=== PATIENT | female | born 1930 | race Caucasian/White ===

== ENCOUNTER 2017-08-12 21:13 | Observation (INO) | payer MEDICARE ==
[2017-08-12 21:49] LABS: BASO % 0.2 % (0-6); EOS % 0.2 % (0-6); GRAN % 62.5 % (47-80); HEMATOCRIT 36.9 % (35.0-47.0); HEMOGLOBIN 11.7 gm/dl (11.6-16.0); LYMPH % 22.5 % (16-45); MEAN CELL VOLUME 92.9 fl (81-97); MEAN CORPUSCULAR HEMOGLOBIN 29.5 pg (27-33); MEAN CORPUSCULAR HGB CONC 31.7 g/dl (32-36); MEAN PLATELET VOLUME 9.6 fl (7.4-10.4); MONO % 14.6 % (0-9); PLATELET COUNT 241 K/uL (130-400); RED BLOOD COUNT 3.97 M/uL (3.80-5.40); RED CELL DISTRIBUTION WIDTH 14.4 % (11.5-14.5); WHITE BLOOD COUNT W/O DIFF 10.1 K/uL (4.2-12.2)
--- NOTE | 2017-08-12 21:56 | Emergency Department Record ---
History of Present Illness - General Chief complaint: Weakness Stated complaint: GENERALIZED WEAKNESS Time Seen by Provider: 08/12/17 21:21 Source: Patient, EMS Mode of Arrival: Ambulatory Limitations: No limitations - History of Present Illness Initial comments: pt has been increasingly weak the last few days until today she could not stand up. she has low back and r hip pain and cant raise her leg. she denies any injury. she lives independently. MD Complaint: Difficulty walking, Generalized weakness Onset/Timin -: Days(s) Location: Generalized, RLE Consistency: Getting worse - Mary Ann Coma Scale Eye Response: (4) Open spontaneously Motor Response: (6) Obeys commands Verbal Response: (5) Oriented [place] Total: 15 - Related Data Home Medications Medication Instructions Recorded Confirmed Last Taken Aspirin [Aspir-Low] 81 mg PO DAILY 08/12/17 08/12/17 Unknown Atorvastatin Calcium [Lipitor] 40 mg PO DAILY 08/12/17 08/12/17 Unknown Bupropion HCl [Bupropion Xl] 150 mg PO DAILY 08/12/17 08/12/17 Unknown Furosemide [Lasix] 20 mg PO QAM 08/12/17 08/12/17 Unknown Glipizide [Glipizide ER] 10 mg PO DAILY 08/12/17 08/12/17 Unknown Levothyroxine Sodium [Synthroid] 112 mcg PO DAILY 08/12/17 08/12/17 Unknown Losartan Potassium 50 mg PO DAILY 08/12/17 08/12/17 Unknown Metoprolol Succinate [Toprol Xl] 100 mg PO DAILY 08/12/17 08/12/17 Unknown Oxybutynin Chloride [Ditropan Xl] 10 mg PO DAILY 08/12/17 08/12/17 Unknown Prednisone 5 mg PO DAILY 08/12/17 08/12/17 Unknown Verapamil HCl 40 mg PO BID 08/12/17 08/12/17 Unknown Allergies Allergy/AdvReac Type Severity Reaction Status Date / Time No Known Drug Allergies Allergy Verified 08/12/17 21:16 Travel Screening - Travel/Exposure Within Last 30 Days Have you traveled within the last 30 days?: No Review of Systems Reviewed: No additional complaints except as noted below Constitutional: Reports: As per HPI, Weakness. Denies: Chills, Fever, Malaise, Night sweats, Weight change Eyes: Reports: As per HPI. Denies: Eye discharge, Eye pain, Photophobia, Vision change ENT: Reports: As per HPI. Denies: Congestion, Dental pain, Ear pain, Epistaxis , Hearing loss, Throat pain Respiratory: Reports: As per HPI. Denies: Cough, Dyspnea, Hemoptysis, Stridor, Wheezes Cardiovascular: Reports: As per HPI. Denies: Arrhythmia, Chest pain, Dyspnea on exertion, Edema, Murmurs, Orthopnea, Palpitations, Paroxysmal nocturnal dyspnea, Rheumatic Fever, Syncope Endocrine: Reports: As per HPI. Denies: Fatigue, Heat or cold intolerance, Polydipsia, Polyuria Gastrointestinal: Reports: As per HPI. Denies: Abdominal pain, Constipation, Diarrhea, Hematemesis, Hematochezia, Melena, Nausea, Vomiting Genitourinary: Reports: As per HPI. Denies: Abnormal menses, Discharge, Dyspareunia, Dysuria, Frequency, Hematuria, Incontinence, Retention, Urgency Musculoskeletal: Reports: As per HPI, Back pain. Denies: Arthralgia, Gout, Joint swelling, Myalgia, Neck pain Skin: Reports: As per HPI. Denies: Bruising, Change in color, Change in hair/ nails, Lesions, Pruritus, Rash Neurological: Reports: As per HPI. Denies: Abnormal gait, Confusion, Headache, Numbness, Paresthesias, Seizure, Tingling, Tremors, Vertigo, Weakness Psychiatric: Reports: As per HPI. Denies: Anxiety, Auditory hallucinations, Depression, Homicidal thoughts, Suicidal thoughts, Visual hallucinations Hematological/Lymphatic: Reports: As per HPI. Denies: Anemia, Blood Clots, Easy bleeding, Easy bruising, Swollen glands Past Medical History - SOCIAL HISTORY Smoking Status: Never smoker Alcohol Use: None Drug Use: None - RESPIRATORY Hx Respiratory Disorders: Yes - CARDIOVASCULAR Hx Cardio Disorders: Yes Hx Heart Attack: Yes ("Around 2006") Hx Hypertension: Yes - NEURO Hx Neuro Disorders: No - GI Hx GI Disorders: No - Hx Genitourinary Disorders: Yes Hx UTI: Yes (hx) - ENDOCRINE Hx Endocrine Disorders: Yes Hx Diabetes: Yes Hx Thyroid Disease: Yes - MUSCULOSKELETAL Hx Musculoskeletal Disorders: Yes Hx Arthritis: Yes - PSYCH Hx Psych Problems: Yes Hx Depression: Yes - HEMATOLOGY/ONCOLOGY Hx Hematology/Oncology Disorders: Yes Hx Cancer: Yes (Breast) Hx Chemotherapy: No Hx Radiation Therapy: Yes (2008) Family Medical History Any Significant Family History?: Yes Hx Diabetes: Father *Diabetes Comment: Aunt Hx Heart Disease: Father Physical Exam - General General Appearance: Alert, Oriented x3, Cooperative, Mild distress - Head Head exam: Normal inspection - Eye Eye exam: Normal appearance, PERRL, EOMI Pupils: Normal accommodation - ENT ENT exam: Normal exam, Mucous membranes moist, Normal external ear exam, Normal orophraynx Ear exam: Normal external inspection. negative: External canal tenderness Nasal Exam: Normal inspection. negative: Discharge, Sinus tenderness Mouth exam: Normal external inspection, Tongue normal Teeth exam: Normal inspection. negative: Dental caries Throat exam: Normal inspection. negative: Tonsillar erythema, Tonsillar exudate - Neck Neck exam: Normal inspection, Full ROM. negative: Tenderness - Respiratory Respiratory exam: Normal lung sounds bilaterally. negative: Respiratory distress - Cardiovascular Cardiovascular Exam: Regular rate, Normal rhythm, Normal heart sounds - GI/Abdominal GI/Abdominal exam: Soft, Normal bowel sounds. negative: Tenderness - Rectal Rectal exam: Deferred - exam: Deferred - Extremities Extremities exam: Normal inspection, Normal capillary refill, Tenderness. negative: Full ROM (unable to lift r leg) - Back Back exam: Reports: Muscle spasm, Paraspinal tenderness, Tenderness. Denies: Full ROM, Rash noted - Neurological Neurological exam: Alert, CN II-XII intact, Normal gait, Oriented X3 - Psychiatric Psychiatric exam: Normal affect, Normal mood - Skin Skin exam: Dry, Intact, Normal color, Warm Course Vital Signs 08/12/17 21:15 Temperature 99.5 F Pulse Rate 72 Respiratory 18 Rate Blood Pressure 180/83 Pulse Ox 98 Medical Decision Making - Lab Data Result diagrams: 08/12/17 21:40 08/12/17 21:40 Lab Results 08/12/17 Range/Units 21:40 WBC 10.1 (4.2-12.2) K/uL RBC 3.97 (3.80-5.40) M/uL Hgb 11.7 (11.6-16.0) gm/dl Hct 36.9 (35.0-47.0) % MCV 92.9 (81-97) fl MCH 29.5 (27-33) pg MCHC 31.7 L (32-36) g/dl RDW 14.4 (11.5-14.5) % Plt Count 241 (130-400) K/uL MPV 9.6 (7.4-10.4) fl Gran % 62.5 (47-80) % Lymphocytes % 22.5 (16-45) % Monocytes % 14.6 H (0-9) % Eosinophils % 0.2 (0-6) % Basophils % 0.2 (0-6) % Disposition Disposition: Admit Clinical Impression: Weakness UTI (urinary tract infection) Qualifiers: Urinary tract infection type: acute cystitis Hematuria presence: without hematuria Qualified Code(s): N30.00 - Acute cystitis without hematuria Hip pain, acute Qualifiers: Laterality: right Qualified Code(s): M25.551 - Pain in right hip Back pain Qualifiers: Back pain location: low back pain Chronicity: acute Back pain laterality: right Sciatica presence: with sciatica Sciatica laterality: sciatica of right side Qualified Code(s): M54.41 - Lumbago with sciatica, right side Disposition: Still a Patient at [facility] Decision to Admit: Admit from ER Decision to Admit Date: 08/13/17 Decision to Admit Time: 00:31 Forms: Patient Portal Access Quality - Quality Measures Quality Measures: N/A - Blood Pressure Screening Does Patient Have Any of the Following: No Blood Pressure Classification: Pre-Hypertensive BP Reading Systolic Measurement: 180 Diastolic Measurement: 83 Screening for High Blood Pressure: < Pre-Hypertensive BP, F/U Documented > [ G8950] Pre-Hypertensive Follow-up Interventions: Follow-up with rescreen every year.
[2017-08-12 22:03] LABS: BLOOD UREA NITROGEN 16 mg/dL (8-23)
[2017-08-12 22:04] LABS: CREATININE 0.8 mg/dL (0.5-0.9); EST GLOMERULAR FILTRATION RATE > 60 mL/min; TOTAL PROTEIN 7.2 g/dL (6.6-8.7)
[2017-08-12 22:06] LABS: GLUCOSE,RANDOM 171 mg/dL (74-109)
[2017-08-12 22:09] LABS: ALBUMIN 3.6 g/dL (4.0-5.0); ALKALINE PHOSPHATASE 48 U/L (35-104); ALT/SGPT 13 U/L (<33); AST/SGOT 20 U/L (10.0-35.0)
[2017-08-12 22:14] LABS: URINE APPEARANCE CLEAR; URINE BILIRUBIN NEGATIVE (NEGATIVE); URINE BLOOD SMALL (NEGATIVE); URINE COLOR YELLOW; URINE GLUCOSE (UA) NEGATIVE (NEGATIVE); URINE KETONE NEGATIVE (NEGATIVE); URINE LEUKOCYTE ESTERASE SMALL (NEGATIVE); URINE NITRITE NEGATIVE (NEGATIVE); URINE UROBILINOGEN 0.2 E.U./dL (0.20 - 1.00)
[2017-08-12 22:26] LABS: URINE BACTERIA 1+; URINE EPITHELIAL CELLS NONE SEEN (FEW); URINE RBC 0 - 2 (NONE SEEN)
[2017-08-12] MEDS ORDERED: ACETAMINOPHEN 500 MG TABLET PO ONE (22:46)
[2017-08-12 23:01] LABS: INFLUENZA A NEGATIVE (NEGATIVE); INFLUENZA B NEGATIVE (NEGATIVE)
[2017-08-12] MEDS ORDERED: CIPROFLOXACIN LACTATE/D5W 400 MG/200 ML BAG IVPB ONE (23:49)
[2017-08-13] MEDS ORDERED: CIPROFLOXACIN LACTATE/D5W 400 MG/200 ML BAG IVPB SCH (01:44)
[2017-08-13] MEDS: LEVOTHYROXINE SOD 112 MCG TAB PO SCH (06:58)
--- NOTE | 2017-08-13 07:24 | RADIOLOGY REPORT ---
EXAM: CHEST, TWO VIEWS HISTORY: GENERALIZED WEAKNESS. TECHNIQUE: Supine AP and lateral views of the chest were obtained. Comparison: None. FINDINGS: The heart projects mildly enlarged with a left ventricular configuration. Evaluation of the pulmonary vasculature is limited by supine technique. It does not, however, appear grossly dilated. No confluent air space opacity is seen nor is there costophrenic angle blunting or pneumothorax. The thoracic aorta is tortuous and atherosclerotic. There are degenerative changes scattered throughout the visualized spine. Mild anterior wedge deformity of several lower thoracic vertebral bodies identified. These are age indeterminate though probably chronic. There is superior end plate compression deformity of what is likely L1, age indeterminate. Surgical clips in the right breast versus right axilla. Surgical clips also noted in the upper abdomen. IMPRESSION: 1. CARDIOMEGALY WITH LEFT VENTRICULAR CONFIGURATION. 2. GROSSLY CLEAR LUNGS AND PLEURAL SPACES. TORTUOUS ATHEROSCLEROTIC THORACIC AORTA. 3. MILD WEDGE DEFORMITIES OF SEVERAL LOWER THORACIC VERTEBRAL BODIES, PROBABLY CHRONIC. 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 JOB NUMBER: [id number] [facility]
--- NOTE | 2017-08-13 07:27 | RADIOLOGY REPORT ---
EXAM: RIGHT HIP HISTORY: GENERALIZED WEAKNESS FOR THREE DAYS. RIGHT HIP PAIN WITHOUT STATED TRAUMA. TECHNIQUE: An AP view of the pelvis was obtained as well as AP and frog leg lateral views of the right hip. Comparison: Same day radiographic examination of the lumbar spine. FINDINGS: There is mild diffuse osteopenia. No acute fracture, dislocation, or destructive bone lesion is seen. There are osteoarthritic changes of each hip, mild to moderate on the right and moderate to advanced on the left. There are degenerative changes of the lower lumbar spine and sacroiliac joints. IMPRESSION: 1. OSTEOPENIA. NO ACUTE FRACTURE NOR DISLOCATION. 2. DEGENERATIVE CHANGES OF THE HIPS, LOWER LUMBAR SPINE AND SACROILIAC JOINTS, DESCRIBED ABOVE. JOB NUMBER: [id number] [facility]
--- NOTE | 2017-08-13 07:36 | RADIOLOGY REPORT ---
EXAM: LUMBAR SPINE, AP AND LATERAL VIEWS HISTORY: GENERALIZED WEAKNESS. RIGHT HIP PAIN. TECHNIQUE: AP and lateral views of the lumbar spine were obtained as well as a spot lateral view of the lumbosacral junction. Comparison: Same day two views of the chest. FINDINGS: There is diffuse osteopenia. There are five non-rib bearing lumbar type vertebra. Minor levoconvex curvature of the lumbar spine. There is mild superior end plate wedge compression deformity of L1 with the anterior height measuring 26 mm while the anterior height of L2 measures 37 mm. This is age indeterminate. Minor anterior wedging of several lower thoracic vertebral bodies likely chronic. The vertebral bodies are otherwise normal in height. There is Grade 1 anterolisthesis of L4 on L5 likely relating to degenerative disk and facet degenerative changes. The vertebral bodies are otherwise normal in alignment. No suspicious lytic or blastic bone lesion. Multilevel degenerative disk/ degenerative end plate changes most pronounced at the lumbosacral junction where they are moderate to advanced. Multilevel bilateral facet arthropathy most pronounced at the lower lumbar levels where the changes are moderate to advanced. There are degenerative changes of the hips, mild to moderate on the right and moderate to severe on the left. Surgical clips are noted within the right upper quadrant of the abdomen consistent with cholecystectomy. There is atherosclerotic calcification of the abdominal aorta without aneurysmal dilatation. IMPRESSION: MILD SUPERIOR END PLATE WEDGE COMPRESSION DEFORMITY OF L1 IS AGE INDETERMINATE. NO OTHER EVIDENCE OF LUMBAR FRACTURE. NO LYTIC OR BLASTIC BONE LESION. MULTILEVEL DEGENERATIVE CHANGES ASSOCIATED WITH MILD LEVOCONVEX CURVATURE CENTERED AT THE L3-L4 LEVEL WELL GRADE 1 ANTEROLISTHESIS OF L4 ON L5. JOB NUMBER: [id number] [facility]
--- NOTE | 2017-08-13 09:40 | Rehab Evaluation ---
Patient Information - Patient Information Diagnosis: weakness, unable to amb, UTI, R hip pain, back pain Ordered Treatment: OT Evaluate and Treat Status: Initial Evaluation Surgery: No Past Medical/Surgical Hx: PAST MEDICAL/SURGICAL HISTORY Past Surgical History Hysterectomy Heart Stents X 5 Cholecystectomy Appendectomy T&A PMH - Respiratory Hx Respiratory Disorders Yes Hx Asthma No Hx Bronchitis No Hx Chronic Obstructive No Pulmonary Disease (COPD) Hx Dyspnea Yes Hx Pneumonia Yes: childhood Hx Pulmonary Embolism Yes: 2017 Hx Sleep Apnea No Hx Tuberculosis No Hx of CPAP No PMH - Cardiovascular Hx Cardiovascular Disorders Yes Hx Abnormal EKG No Hx Cardiac Catheterization Yes Hx Chest Pain Yes Hx Congestive Heart Failure No Hx Deep Vein Thrombosis No Hx Edema No Hx Heart Attack Yes: "Around 2006" Hx Hypertension Yes Hx Hypotension No Hx Irregular Heartbeat Yes: with exertion Hx Palpitations No Hx Pacemaker/Defibrillator No Hx Vascular Disease No Hx Transient Ischemic Attacks No (TIA) PMH - Neuro Hx Neurological Disorders No Hx Brain Tumor Yes Hx Cerebrovascular Accident No Hx Dementia No Hx Dizziness Yes Hx Headaches No Hx Neuropathy No Hx Parkinson's Disease No Hx Seizures No Hx Speech Problem No Hx Syncope No Hx Transient Ischemic Attacks No (TIA) PMH - GI Hx Gastrointestinal Disorders No Hx Abdominal Pain No Hx Celiac Disease No Hx Crohn's Disease No Hx Diverticulitis No Hx Gastrointestinal Bleed No Hx Gastroesophageal Reflux No Hx Hepatitis/Jaundice No Hx Hiatal Hernia Yes Hx Irritable Bowel No Hx Liver Disease No Hx Nausea/Vomiting No Hx Obstructive Bowel No Hx Pancreatitis No Hx Rectal Bleeding No Hx Ulcer No Hx Weight Loss/Weight Gain No PMH - Hx Genitourinary Disorders Yes Hx Bladder Problem Yes Hx Dialysis No Hx Kidney Stones No Hx Renal Disease No Hx Urinary Tract Infection Yes: hx PMH - Endocrine Hx Endocrine Disorders Yes Hx Diabetes Yes Hx Thyroid Disease Yes PMH - Musculoskeletal Hx Musculoskeletal Disorders Yes Hx Arthritis Yes Hx Back Injury No Hx Fibromyalgia No Hx Gout No Hx Musculoskeletal Disease No Hx Osteoporosis No PMH - Psych Hx Psychiatric Problems Yes Hx Anxiety No Hx Behavior Problems No Hx Depression Yes Hx Emotional Abuse No Hx Sexual Abuse No Hx Suicide Attempt No Major Depressive Episode No Feelings of Hopelessness Yes PMH - Hematology/Oncology Hx Hematology/Oncology Yes Disorders Hx Anemia No Hx Blood Disorders No Hx Bruising No Hx Cancer Yes: Breast Hx Chemotherapy No Hx Radiation Therapy Yes: 2007 Hx Clotting Problems No Hx Sickle Cell Disease No Hx Unexplained Bleeding No Hx Blood Transfusion Reaction No Premorbid Status: Detail (Pt lives alone in a 1 story house with basement, she primarily stays on the main floor. She has 3 steps and 1 handrailing at the entrance. She has a tub/shower combination with 2 grab bars and she usually stands to shower. She has a standard height toilet, no grab bar. She is Ind with all ADLs, meal prep, laundry, home mgmt and yard work. She ambulates with a 4 wheeled walker.) Social History: Detail (Supportive daughter and son who live very close.) Precautions: [place], Fall - Time With Patient Total Time Spent With Patient (Min): 35 Treatment Procedures: Detail (OT eval low complexity) Subjective Information - Subjective Information Per Patient Objective Data - Pain Pain Present: Yes (Pt reports 0/10 pain at rest but significant pain in right leg with any movement) - Mental Status Patient Orientation: Oriented x3 - Visual Perception Appears within normal limits for therapeutic activities - ROM Within normal limits (Adama UE AROM grossly WNL) - Strength/Tone Within normal limits (Adama UE strength 4+/5) - Coordination Appears within normal limits for therapeutic activities - Bed Mobility Needs Assist (Mod assist for sit to supine, max assist x 2 to scoot up in bed.) - Transfers Dependent (Sit to stand from EOB to walker with mod assist x 1 and max assist x 1. Pt only able to stand for several seconds with mod assist x 2 due to right LE pain.) - Balance Balance Sitting: Good Balance Standing: Poor (Due to right LE pain) - Sensation Intact - Gait Detail (Pt unable to ambulate at this time) - ADL's/IADL's Detail (Pt able to doff hospital gown and don gown Indly while sitting at EOB. Nursing has been assisting with toileting using bed side commode.) Therapy Assessment - Therapy Assessment Detail (Pt presents with significantly impaired functional mobility due to right LE pain which is limiting her Ind with ADL activity.) Problem List - Problem List Occupational Therapy Problem List: Detail (1. Decreased Ind with self cares due to right LE pain. 2. Decreased functional mobility needed for safe and Ind self cares due to pain.) Goals - Goals Occupational Therapy Goals: 1. Pt will be Ind with dressing and showering activities. 2. Pt will be Ind with bed mobility and tranfers to allow improved Ind with self cares. Prognosis - Prognosis Good Plan - Plan Occupational Therapy Plan: OT 2-4 days per week to address self cares, functional mobility and pain mgmt to allow Ind return home.
[2017-08-13] MEDS: ACETAMINOPHEN 325 MG TAB PO PRN (09:43)
[2017-08-13] MEDS: BUPROPION HCL 150 MG TAB.SR.12H PO SCH (09:45)
[2017-08-13] MEDS: PREDNISONE 5 MG TAB PO SCH (09:46)
[2017-08-13] MEDS: LOSARTAN POTASSIUM 25 MG TABLET PO SCH (09:46)
[2017-08-13] MEDS: METOPROLOL SUCC 50 MG TABLET PO SCH (09:46)
[2017-08-13] MEDS: ASPIRIN 81 MG TABEC PO SCH (09:47)
[2017-08-13] MEDS: GLIPIZIDE XL 5 MG TABLET PO SCH (09:47)
[2017-08-13] MEDS: FUROSEMIDE 20 MG TABLET PO SCH (09:47)
[2017-08-13] MEDS ORDERED: OXYBUTYNIN CHLORIDE 10 MG PO SCH (10:00)
[2017-08-13] MEDS: LIDOCAINE 5% PATCH TOP SCH (11:20)
[2017-08-13] MEDS: CIPROFLOXACIN LACTATE/D5W 400 MG/200 ML BAG IVPB SCH (11:20)
--- NOTE | 2017-08-13 11:22 | History & Physical ---
History of Present Illness - Date of Service Date of Service for History & Physical: 08/13/17 - History of Present Illness Admitting Diagnosis: weakness, unable to ambulate, uti, back pain, r hip pain History of Present Illness: 87yo female presents with generalized weakness, inability to ambulate, right hip pain, and UTI. Patient has a past medical history of diabetes, multiple heart attacks, arthritis, and frequent UTI's. Patient states she has seen a urologist in the past for recurring UTI's, who discontinued her Ditropan. Patient states that she has chronic right hip pain that she controls with Tylenol at home. Patient lives at home alone, with family living nearby. She states yesterday she had significantly worsening right hip pain with no known injury. She had ambulated to the bathroom but was unable to get up off the toilet around 5pm. She states her arms were too weak to pull herself up and she was experiencing severe right hip pain. Patient had to call an ambulance at that point to be transported to the ED. While in the ED patient's workup was positive for a UTI, for which she was started on IV Cipro with urine culture pending. Radiography studies of her right hip indicated degenerative changes with no acute injury. Radiography of her lumbar spine was also completed which showed mild wedge compression of L1 which was likely chronic. Her chest x-ray was negative. An EKG completed by EMS did not reveal any new ST changes. CBC and CMP were unremarkable, influenza negative. Patient afebrile. 08/13/17: Patient laying in bed, complaining of continued right hip. States Tylenol has been improving the pain and has had success with Aleive in the past , but is scared to take it with her heart issues. Staff report that patient was unable to stand at the bedside this morning with assistance due to weakness and pain. Patient reports that the weakness and pain in her right hip have been progressively worsening over the past several months. Patient had a recent admission to [facility] in March for physical therapy for her back pain. Patient denies urinary symptoms at this time. Patient's labs and vitals reviewed. PCP: Leigha Cardiology: MARY Sparrow Travel Screening - Travel/Exposure Within Last 30 Days Have you traveled within the last 30 days?: No - Travel/Exposure Within Last Year Have you traveled outside the [place] in the last year?: No - Additonal Travel Details Have you been exposed to anyone with a communicable illness?: No - Travel Symptoms Symptom Screening: None Review of Systems Constitutional: Reports: As per HPI, Weakness. Denies: Chills, Fever, Malaise, Night sweats, Weight change Eyes: Reports: As per HPI. Denies: Eye discharge, Eye pain, Photophobia, Vision change ENT: Reports: As per HPI. Denies: Congestion, Dental pain, Ear pain, Epistaxis , Hearing loss, Throat pain Respiratory: Reports: As per HPI. Denies: Cough, Dyspnea, Hemoptysis, Stridor, Wheezes Cardiovascular: Reports: As per HPI, Murmurs. Denies: Arrhythmia, Chest pain, Dyspnea on exertion, Edema, Orthopnea, Palpitations, Paroxysmal nocturnal dyspnea, Rheumatic Fever, Syncope Endocrine: Reports: As per HPI. Denies: Fatigue, Heat or cold intolerance, Polydipsia, Polyuria Gastrointestinal: Reports: As per HPI. Denies: Abdominal pain, Constipation, Diarrhea, Hematemesis, Hematochezia, Melena, Nausea, Vomiting Genitourinary: Reports: As per HPI. Denies: Abnormal menses, Discharge, Dyspareunia, Dysuria, Frequency, Hematuria, Incontinence, Retention, Urgency Musculoskeletal: Reports: As per HPI, Arthralgia (right hip pain), Back pain. Denies: Gout, Joint swelling, Myalgia, Neck pain Skin: Reports: As per HPI. Denies: Bruising, Change in color, Change in hair/ nails, Lesions, Pruritus, Rash Neurological: Reports: As per HPI, Abnormal gait (unable to ambulate due to weakness). Denies: Confusion, Headache, Numbness, Paresthesias, Seizure, Tingling, Tremors, Vertigo, Weakness Psychiatric: Reports: As per HPI. Denies: Anxiety, Auditory hallucinations, Depression, Homicidal thoughts, Suicidal thoughts, Visual hallucinations Hematological/Lymphatic: Reports: As per HPI. Denies: Anemia, Blood Clots, Easy bleeding, Easy bruising, Swollen glands Past Medical History - SOCIAL HISTORY Smoking Status: Never smoker Alcohol Use: None Drug Use: None - RESPIRATORY Hx Respiratory Disorders: Yes Hx Asthma: No Hx Bronchitis: No Hx COPD: No Hx Dyspnea: Yes Hx Pneumonia: Yes (childhood) Hx Pulmonary Embolism: Yes (2017) Hx Sleep Apnea: No Hx Tuberculosis: No Hx of CPAP: No - CARDIOVASCULAR Hx Cardio Disorders: Yes Hx Abnormal EKG: No Hx Cardiac Cath: Yes Hx Chest Pain: Yes Hx CHF: No Hx Deep Vein Thrombosis: No Hx Edema: No Hx Heart Attack: Yes ("Around 2006") Hx Hypertension: Yes Hx Hypotension: No Hx Irregular Heartbeat: Yes (with exertion) Hx Palpitations: No Hx Pacemaker/Defib: No Hx Vascular Disease: No - NEURO Hx Neuro Disorders: No Hx Brain Tumor: Yes Hx CVA: No Hx Dementia: No Hx Dizziness: Yes Hx Headaches: No Hx Neuropathy: No Hx Parkinson's Disease: No Hx Seizures: No Hx Speech Problem: No Hx TIA: No - GI Hx GI Disorders: No Hx Abdominal Pain: No Hx Celiac Disease: No Hx Crohn's Disease: No Hx Diverticulitis: No Hx GI Bleed: No Hx Reflux: No Hx Hepatitis/Jaundice: No Hx Hiatal Hernia: Yes Hx Irritable Bowel: No Hx Liver Disease: No Hx Nausea/Vomiting: No Hx Obstructive Bowel: No Hx Pancreatitis: No Hx Rectal Bleeding: No Hx Ulcer: No Hx Wt Loss/Wt Gain: No Hx of Polyps: No - Hx Genitourinary Disorders: Yes Hx Bladder Problem: Yes Hx Dialysis: No Hx Kidney Stones: No Hx Renal Disease: No Hx UTI: Yes (hx) - ENDOCRINE Hx Endocrine Disorders: Yes Hx Diabetes: Yes Hx Thyroid Disease: Yes - MUSCULOSKELETAL Hx Musculoskeletal Disorders: Yes Hx Arthritis: Yes Hx Back Injury: No Hx Fibromyalgia: No Hx Gout: No Hx Musculoskeletal Disease: No Hx Osteoporosis: No - PSYCH Hx Psych Problems: Yes Hx Anxiety: No Hx Behavior Problems: No Hx Depression: Yes Hx Emotional Abuse: No Hx Sexual Abuse: No Hx Suicide Attempt: No Major Depressive Episode: No Feelings of Hopelessness: Yes - HEMATOLOGY/ONCOLOGY Hx Hematology/Oncology Disorders: Yes Hx Anemia: No Hx Blood Disorders: No Hx Bruising: No Hx Cancer: Yes (Breast) Hx Chemotherapy: No Hx Radiation Therapy: Yes (2007) Hx Clotting Problems: No Hx Sickle Cell Disease: No Hx Unexplained Bleeding: No Hx Blood Transfusions: No Hx Blood Transfusion Reaction: No Family Medical History Any Significant Family History?: Yes Hx Anxiety: Children Hx Dementia: Mother Hx Depression: Mother Hx Diabetes: Father, Children *Diabetes Comment: Aunt Hx Heart Disease: Father Hx HTN: Father Hx Resp Disorders: Father Hx Stroke: Grandparents H&P Meds/Allergies - Allergies Allergies: Allergies Allergy/AdvReac Type Severity Reaction Status Date / Time No Known Drug Allergies Allergy Verified 08/12/17 21:16 - Home Medications Home Medications Medication Instructions Recorded Confirmed Last Taken Aspirin [Aspir-Low] 81 mg PO QHS 08/12/17 08/13/17 Unknown Atorvastatin Calcium [Lipitor] 40 mg PO DAILY 08/12/17 08/12/17 Unknown Bupropion HCl [Bupropion Xl] 150 mg PO DAILY 08/12/17 08/12/17 Unknown Furosemide [Lasix] 20 mg PO QAM 08/12/17 08/12/17 Unknown Glipizide [Glipizide ER] 10 mg PO DAILY 08/12/17 08/12/17 Unknown Levothyroxine Sodium [Synthroid] 112 mcg PO DAILY 08/12/17 08/12/17 Unknown Losartan Potassium 50 mg PO DAILY 08/12/17 08/12/17 Unknown Metoprolol Succinate [Toprol Xl] 100 mg PO DAILY 08/12/17 08/12/17 Unknown Prednisone 5 mg PO DAILY 08/12/17 08/12/17 Unknown Verapamil HCl 40 mg PO BID 08/12/17 08/12/17 Unknown - Active Medications Active Medications: Current Medications Acetaminophen (Tylenol 325mg) 650 mg PO Q6H PRN PRN Reason: PAIN/TEMP Last Admin: 08/13/17 09:43 Dose: 650 mg Aspirin (Ecotrin (Ec)) 81 mg PO DAILY [facility] Last Admin: 08/13/17 09:47 Dose: 81 mg Atorvastatin Calcium (Lipitor) 40 mg PO QHS [facility] Bupropion HCl (Wellbutrin Sr) 150 mg PO DAILY [facility] Last Admin: 08/13/17 09:45 Dose: 150 mg Furosemide (Lasix) 20 mg PO QAM [facility] Last Admin: 08/13/17 09:47 Dose: 20 mg Glipizide (Glucotrol Xl) 10 mg PO DAILY [facility] Last Admin: 08/13/17 09:47 Dose: 10 mg Ciprofloxacin Lactate (Cipro) 400 mg in 200 mls @ 200 mls/hr IVPB Q12H [facility] Stop: 08/18/17 12:01 Levothyroxine Sodium (Synthroid) 112 mcg PO DAILYTHY [facility] Last Admin: 08/13/17 06:58 Dose: 112 mcg Lidocaine (Lidoderm) 1 each TOP DAILY [facility] Last Admin: 08/13/17 11:20 Dose: 1 each Losartan Potassium (Cozaar) 50 mg PO DAILY [facility] Last Admin: 08/13/17 09:46 Dose: 50 mg Metoprolol Succinate (Toprol Xl) 100 mg PO DAILY [facility] Last Admin: 08/13/17 09:46 Dose: 100 mg Non-Formulary Medication (Verapamil Hcl [Verapamil Hcl]) 40 mg PO BID [facility] Prednisone (Prednisone 5mg) 5 mg PO DAILY [facility] Last Admin: 08/13/17 09:46 Dose: 5 mg Physical Exam - General General Appearance: Alert, Oriented x3, Cooperative, Mild distress Limitations: No limitations - Head Head exam: Normal inspection - Eye Eye exam: Normal appearance, PERRL, EOMI Pupils: Normal accommodation - ENT ENT exam: Normal exam, Mucous membranes moist, Normal external ear exam, Normal orophraynx Ear exam: Normal external inspection. negative: External canal tenderness Nasal Exam: Normal inspection. negative: Discharge, Sinus tenderness Mouth exam: Normal external inspection, Tongue normal Teeth exam: Normal inspection. negative: Dental caries Throat exam: Normal inspection. negative: Tonsillar erythema, Tonsillar exudate - Neck Neck exam: Normal inspection, Full ROM. negative: Tenderness - Respiratory Respiratory exam: Normal lung sounds bilaterally. negative: Respiratory distress - Cardiovascular Cardiovascular Exam: Regular rate, Normal rhythm, Normal heart sounds, Other ( murmur) - GI/Abdominal GI/Abdominal exam: Soft, Normal bowel sounds. negative: Tenderness - Rectal Rectal exam: Deferred - exam: Deferred - Extremities Extremities exam: Normal inspection, Normal capillary refill, Tenderness. negative: Full ROM (unable to lift r leg) - Back Back exam: Reports: Muscle spasm, Paraspinal tenderness, Tenderness. Denies: Full ROM, Rash noted - Neurological Neurological exam: Alert, CN II-XII intact, Normal gait, Oriented X3 - Psychiatric Psychiatric exam: Normal affect, Normal mood - Skin Skin exam: Dry, Intact, Normal color, Warm Results - Labs Result Diagrams: 08/12/17 21:40 08/12/17 21:40 VTE H&P Assessment - Risk for VTE Risk for VTE: Yes Risk Level: High Risk Assessment Date: 08/13/17 Risk Assessment Time: 11:42 VTE Orders Placed or Will Be Placed: Yes Plan - Inpatient Certification Inpatient Certification: Admit to inpatient care: Based on my medical assessment, after consideration of patient's risk factors (age, co-morbidities and patient presenting symptoms and acuity), I expect that this patient will remain in the hospital greater than or equal to two midnights and that the services needed warrant inpatient care because: Patient Risk Factors: [age, urinary tract infection, severe weakness, inability to ambulate] Estimated length of stay: [72-96 hours] The patient may reasonably be expected to be discharged or transferred to a hospital within 96 hours after admission to [facility]. Services needed: [IV antibiotics, PT/OT, social work] Post hospital care (if known): [[facility] vs Home care] I certify that my determination is in accordance with my understanding of Medicare requirements for reasonable and necessary inpatient services. 08/13/17 11:42 - Detailed Diagnosis and Plan (1) UTI (urinary tract infection) Current Visit: Yes Status: Acute Qualifiers: Urinary tract infection type: acute cystitis Hematuria presence: without hematuria Qualified Code(s): N30.00 - Acute cystitis without hematuria Base Code: N39.0 - URINARY TRACT INFECTION, SITE NOT SPECIFIED Comment: : UA showed positive leukocyte esterase, WBC normal, afebrile, urine culture pending. Likely contributing to generalized weakness. - Continue Cipro 400mg IVPB q12h - VS q8h - repeat labs qam (2) Weakness Current Visit: Yes Status: Acute Base Code: R53.1 - WEAKNESS Comment: 08/13: Acute on chronic weakness. Patient unable to independently ambulate, requiring 2-3 person assist. Currently lives alone. Likely deconditioning with UTI causing acute exacerbation. - PT/OT eval ordered - Social work consult to discuss disposition (3) Hip pain, acute Current Visit: Yes Status: Acute Qualifiers: Laterality: right Qualified Code(s): M25.551 - Pain in right hip Base Code: M25.559 - PAIN IN UNSPECIFIED HIP Comment: 08/13/17: stable. Right hip x-ray showed degenerative changes with no acute process. Lumbar spine x- rays show mild wedge compression of L1 that is likely chronic with grade 1 anteriolethesis of L4-L5. Patient reports history of hip pain for several years , does not see orthopedics, treats with Tylenol at home. - Continue tylenol prn and may alternate with low dose ibuprofen - Try lidocaine patch for pain - Start PT/OT - May benefit from orthopedic referral as an outpatient (4) Full code status Current Visit: Yes Status: Acute Base Code: Z78.9 - OTHER SPECIFIED HEALTH STATUS Comment: 08/13/17: Patient is full code (5) DVT prophylaxis Current Visit: Yes Status: Acute Base Code: [id number] - Comment: 08/13/17: patient is high risk due to age and restricted mobility. - lovenox 40mg SC daily
--- NOTE | 2017-08-13 11:40 | Rehab Evaluation ---
Patient Information - Patient Information Diagnosis: weakness, unable to amb, UTI, R hip pain, back pain Ordered Treatment: PT Evaluate and Treat Surgery: No Past Medical/Surgical Hx: PMH - Respiratory Hx Respiratory Disorders Yes Hx Asthma No Hx Bronchitis No Hx Chronic Obstructive No Pulmonary Disease (COPD) Hx Dyspnea Yes Hx Pneumonia Yes: childhood Hx Pulmonary Embolism Yes: 2017 Hx Sleep Apnea No Hx Tuberculosis No Hx of CPAP No PMH - Cardiovascular Hx Cardiovascular Disorders Yes Hx Abnormal EKG No Hx Cardiac Catheterization Yes Hx Chest Pain Yes Hx Congestive Heart Failure No Hx Deep Vein Thrombosis No Hx Edema No Hx Heart Attack Yes: "Around 2006" Hx Hypertension Yes Hx Hypotension No Hx Irregular Heartbeat Yes: with exertion Hx Palpitations No Hx Pacemaker/Defibrillator No Hx Vascular Disease No Hx Transient Ischemic Attacks No (TIA) PMH - Neuro Hx Neurological Disorders No Hx Brain Tumor Yes Hx Cerebrovascular Accident No Hx Dementia No Hx Dizziness Yes Hx Headaches No Hx Neuropathy No Hx Parkinson's Disease No Hx Seizures No Hx Speech Problem No Hx Transient Ischemic Attacks No (TIA) PMH - GI Hx Gastrointestinal Disorders No Hx Abdominal Pain No Hx Celiac Disease No Hx Crohn's Disease No Hx Diverticulitis No Hx Gastrointestinal Bleed No Hx Gastroesophageal Reflux No Hx Hepatitis/Jaundice No Hx Hiatal Hernia Yes Hx Irritable Bowel No Hx Liver Disease No Hx Nausea/Vomiting No Hx Obstructive Bowel No Hx Pancreatitis No Hx Rectal Bleeding No Hx Ulcer No Hx Weight Loss/Weight Gain No PMH - Hx Genitourinary Disorders Yes Hx Bladder Problem Yes Hx Dialysis No Hx Kidney Stones No Hx Renal Disease No Hx Urinary Tract Infection Yes: hx PMH - Endocrine Hx Endocrine Disorders Yes Hx Diabetes Yes Hx Thyroid Disease Yes PMH - Musculoskeletal Hx Musculoskeletal Disorders Yes Hx Arthritis Yes Hx Back Injury No Hx Fibromyalgia No Hx Gout No Hx Musculoskeletal Disease No Hx Osteoporosis No PMH - Psych Hx Psychiatric Problems Yes Hx Anxiety No Hx Behavior Problems No Hx Depression Yes Hx Emotional Abuse No Hx Sexual Abuse No Hx Suicide Attempt No Major Depressive Episode No Feelings of Hopelessness Yes PMH - Hematology/Oncology Hx Hematology/Oncology Yes Disorders Hx Anemia No Hx Blood Disorders No Hx Bruising No Hx Cancer Yes: Breast Hx Chemotherapy No Hx Radiation Therapy Yes: 2007 Hx Clotting Problems No Hx Sickle Cell Disease No Hx Unexplained Bleeding No Hx Blood Transfusion Reaction No Premorbid Status: Detail (Pt lives alone in a 1 story house with basement, she primarily stays on the main floor. She has 3 steps and 1 handrailing at the entrance. She has a tub/shower combination with 2 grab bars and she usually stands to shower. She has a standard height toilet, no grab bar. She is Ind with all ADLs, meal prep, laundry, home mgmt and yard work. She ambulates with a 4 wheeled walker.) Social History: Detail (Supportive daughter and son who live very close.) Precautions: [place], [place] - Time With Patient Total Time Spent With Patient (Min): 30 Treatment Procedures: Detail (PT Initial Evaluation) Subjective Information - Subjective Information Per Patient (The patient is reporting R hip and Leg pain that has been bothering her for the last 10 days. She says that it starts in the hip and travels down the back of the leg into the foot. She says that she has to lay still at night to avoid increasing the pain.) Objective Data - Pain Pain Present: Yes Pain Intensity: 6 (R Hip, Leg) Pain Scale Used: Numeric (1 - 10) - ROM Within normal limits (The patient was WNL in the L Hip, Knee, and ankle. The patient was WNL in the R ankle, but was limited with R Hip and Knee ROM due to increased pain) - Strength/Tone Not within normal limits (L LE - Hip Flexion 4/5, Abduction/Adduction 4+/5, Knee Extension 4+/5, Flexion 4/5, Plantar/Dorsiflexion 4+/5. The R LE was not assessed due to increased R LE pain.) - Bed Mobility Needs Assist (The patient required mod. assist x 2 to transfer from supine to sit. She required guarding of the trunk and torso to complete the transfer) - Transfers Needs Assist (The patient required min. assist x 2 to transfer from sit to stand. She required CGA x 2 to transfer from standing to the bedside commode. She was then able to transfer from sitting on the commode to standing with min. assist x 1. She was then able to complete a standing pivot transfer with CGA x 2 to sitting in a recliner. The patient was able to place some weight into the R LE with all transfer activities.) - Balance Balance Sitting: Good (No LOB with sitting at the bedside and in her recliner. No LOB during strength testing.) Balance Standing: Poor (The patient required CGA to maintain standing during transfer activities due to increased pain in the R LE. She progressively put more weight through the extremities during continued transfer activities.) - Sensation Intact - Gait Detail (True gait assessment was not completed as the patient completed standing pivot transfer. She required 2WW for mobility during pivot transfers) Therapy Assessment - Therapy Assessment Detail (The patient showed decreased strength in the L LE, and formal assessment was not completed in the R LE due to increased pain. She required assitance with bed mobility and transfers. Formal gait assessment was not assessed, but based on other findings gait skills may be limited due to increased pain. The patient would benefit from PT to return to previous functional level in an inpatient and subacute rehab level if required. Feel the patient will move better and require less assistance once pain is controlled.) Problem List - Problem List Physical Therapy Problem List: Detail (1) Increased pain in R LE 2) Difficulty with bed mobilty and transfers 3) Difficulty with gait activities) Occupational Therapy Problem List: Detail (1. Decreased Ind with self cares due to right LE pain. 2. Decreased functional mobility needed for safe and Ind self cares due to pain.) Goals - Goals Physical Therapy Goals: 1) The patient will be able to transfer from sit to stand with supervision to safely transfer upon d/c. 2) The patient will be independent with bed mobility for safe transfers upon d/c Occupational Therapy Goals: 1. Pt will be Ind with dressing and showering activities. 2. Pt will be Ind with bed mobility and tranfers to allow improved Ind with self cares. Prognosis - Prognosis Good Plan - Plan Physical Therapy Plan: The patient will be seen 1-2x/day M-F for gait training, transfer training, and LE strengthening activities. Occupational Therapy Plan: OT 2-4 days per week to address self cares, functional mobility and pain mgmt to allow Ind return home.
[2017-08-13] MEDS ORDERED: IBUPROFEN 200 MG TABLET PO PRN (11:55)
[2017-08-13] MEDS: VERAPAMIL 40 MG MC SCH (21:59)
[2017-08-13] MEDS: TRAMADOL HCL 50 MG TABLET PO PRN (22:00)
[2017-08-13] MEDS: DOCUSATE SODIUM 100 MG CAPSULE PO PRN (22:00)
[2017-08-13] MEDS: ATORVASTATIN 20 MG TABLET PO SCH (22:01)
[2017-08-13] MEDS: REMOVE PATCH 1 EACH MISC TD SCH (22:03)
[2017-08-14] MEDS: VERAPAMIL 40 MG MC SCH ×3 (00:03→21:58)
[2017-08-14] MEDS: CIPROFLOXACIN LACTATE/D5W 400 MG/200 ML BAG IVPB SCH ×3 (00:07→23:08)
[2017-08-14] MEDS: ACETAMINOPHEN 325 MG TAB PO PRN (02:48)
[2017-08-14] MEDS: LEVOTHYROXINE SOD 112 MCG TAB PO SCH (06:07)
[2017-08-14] MEDS: METOPROLOL SUCC 50 MG TABLET PO SCH (09:39)
[2017-08-14] MEDS: LOSARTAN POTASSIUM 25 MG TABLET PO SCH (09:41)
[2017-08-14] MEDS: FUROSEMIDE 20 MG TABLET PO SCH (09:42)
[2017-08-14] MEDS: BUPROPION HCL 150 MG TAB.SR.12H PO SCH (09:42)
[2017-08-14] MEDS: LIDOCAINE 5% PATCH TOP SCH (09:42)
[2017-08-14] MEDS: ASPIRIN 81 MG TABEC PO SCH (09:43)
[2017-08-14] MEDS: ENOXAPARIN 40 MG/0.4 ML SYR SQ SCH (09:43)
[2017-08-14] MEDS: PREDNISONE 5 MG TAB PO SCH (09:43)
[2017-08-14] MEDS: GLIPIZIDE XL 5 MG TABLET PO SCH (09:43)
[2017-08-14] MEDS: DOCUSATE SODIUM 100 MG CAPSULE PO PRN (13:37)
[2017-08-14] MEDS: ATORVASTATIN 20 MG TABLET PO SCH (21:57)
[2017-08-14] MEDS: TRAMADOL HCL 50 MG TABLET PO PRN (22:01)
[2017-08-14] MEDS: REMOVE PATCH 1 EACH MISC TD SCH (23:08)
[2017-08-15] MEDS: LEVOTHYROXINE SOD 112 MCG TAB PO SCH (07:27)
[2017-08-15] MEDS: BUPROPION HCL 150 MG TAB.SR.12H PO SCH (09:44)
[2017-08-15] MEDS: METOPROLOL SUCC 50 MG TABLET PO SCH (09:44)
[2017-08-15] MEDS: LIDOCAINE 5% PATCH TOP SCH (10:44)
[2017-08-15] MEDS: FUROSEMIDE 20 MG TABLET PO SCH (10:44)
[2017-08-15] MEDS: GLIPIZIDE XL 5 MG TABLET PO SCH (10:44)
[2017-08-15] MEDS: ASPIRIN 81 MG TABEC PO SCH (10:45)
[2017-08-15] MEDS: LOSARTAN POTASSIUM 25 MG TABLET PO SCH (10:45)
[2017-08-15] MEDS: PREDNISONE 5 MG TAB PO SCH (10:45)
[2017-08-15] MEDS: VERAPAMIL 40 MG MC SCH (10:46)
[2017-08-15] MEDS: ENOXAPARIN 40 MG/0.4 ML SYR SQ SCH (10:46)
[2017-08-15] MEDS ORDERED: MAGNESIUM HYDROXIDE 30 ML UDC PO PRN (10:55)
[2017-08-15] MEDS: DOCUSATE SODIUM 100 MG CAPSULE PO PRN (10:55)
[2017-08-15] MEDS ORDERED: CIPROFLOXACIN HCL 500 MG TABLET PO SCH (13:15)
--- NOTE | 2017-08-15 13:19 | Discharge Note ---
VTE H&P Assessment - Risk for VTE Risk for VTE: Yes Risk Level: High Risk Assessment Date: 08/13/17 Risk Assessment Time: 11:42 VTE Orders Placed or Will Be Placed: Yes Discharge Medications - Discharge Medications Prescriptions: Ciprofloxacin HCl [Cipro] 500 mg PO Q12HR #20 tablet Home Medications: Ambulatory Orders Aspirin [Aspir-Low] 81 mg PO DAILY 08/12/17 [Last Taken Unknown] Atorvastatin Calcium [Lipitor] 40 mg PO QHS 08/12/17 [Last Taken Unknown] Bupropion HCl [Bupropion Xl] 150 mg PO DAILY 08/12/17 [Last Taken Unknown] Furosemide [Lasix] 20 mg PO QAM 08/12/17 [Last Taken Unknown] Glipizide [Glipizide ER] 10 mg PO DAILY 08/12/17 [Last Taken Unknown] Levothyroxine Sodium [Synthroid] 112 mcg PO DAILY 08/12/17 [Last Taken Unknown] Losartan Potassium 50 mg PO DAILY 08/12/17 [Last Taken Unknown] Metoprolol Succinate [Toprol Xl] 100 mg PO DAILY 08/12/17 [Last Taken Unknown] Prednisone 5 mg PO DAILY 08/12/17 [Last Taken Unknown] Verapamil HCl 40 mg PO BID 08/12/17 [Last Taken Unknown] Ciprofloxacin HCl [Cipro] 500 mg PO Q12HR #20 tablet 08/15/17 [Last Taken Unknown] Discharge Note - Date Date of Discharge Note: 08/15/17 Condition: (1) Good Forms: Patient Portal Access
[2017-08-15] MEDS: CIPROFLOXACIN LACTATE/D5W 400 MG/200 ML BAG IVPB SCH (14:16)
--- NOTE | 2017-08-16 08:40 | Discharge Summary ---
DATE: 08/15/2017 DISCHARGE DIAGNOSES: 1. Urinary tract infection. 2. Weakness. 3. Possible urosepsis. ATTENDING PHYSICIAN: Pancho Dyer DO REASON FOR HOSPITALIZATION: This 87-year-old female presented to the emergency department with generalized weakness for 3 days prior to coming to the ER and right hip pain. She has more right flank pain. She was having also urinary incontinence, frequent urination. She was evaluated in the emergency department by Dr. Parsons, diagnosed with urinary tract infection and weakness and low back pain with sciatica on the right side. She was put in the hospital for IV antibiotics and further care. SIGNIFICANT FINDINGS: WBC 10,100, hemoglobin 11.7, sodium 132, potassium 3.8, chloride 93, glucose 171, troponin T was normal. Brain natriuretic peptide was 699. Urine showing a specific gravity of 1.020, blood is small, WBC 10-15, bacteria 1+. Influenza A and B were negative. Chest x-ray showing cardiomegaly with left ventricular configuration, grossly clear lungs and pleural spaces, tortuous atherosclerotic thoracic aorta, mild alleged deformities of several lower thoracic vertebrae bodies, probably chronic, age indeterminate, mild superior end plate compression deformity of L1. She also had a hip x-ray, a right hip x-ray showing osteopenia, no acute fracture, no dislocation, degenerative change of the hip, lower lumbar spine, and sacroiliac joints described with degenerative joint disease. Lumbar spine x-ray showing mild superior end plate wedge compression deformity of L1 is age indeterminate. No other evidence of lumbar fracture, no lytic or blastic bone lesions, multilevel degenerative change associated with mild convex curvature centered at the L3-L4 levels as well as grade 1 anterior listhesis of L4 and L5. EKG showing sinus rhythm. No acute ST-T-wave abnormalities. IL interval long, 0.219. THERAPY PROVIDED: The patient was given IV Cipro, gradually improved, doing better, walking around the room with a walker and standby assistance. However, she feels too weak to manage at home alone. We will place her in the swing bed program. I was informed that she can go in without 3-day stay. HOSPITAL COURSE: The patient is improved and doing much better than when she came in but still needs a little rehab for deconditioning. CONDITION ON DISCHARGE: Improved with deconditioning. DISCHARGE INSTRUCTIONS: Cipro 500 mg b.i.d. for 10 days. Will transition to a swing bed and continue her home medications that are documented in the computer. DELISA
== END 2017-08-15 16:20 | disposition swing bed (61) ==
LOC: ER 21:13 → INTOOBSV 08-13 01:08 → OBSVTOIN 08-13 01:08 → MEDSURG 08-13 01:08 → OBSVTOIN 08-13 10:44 → INTOOBSV 08-13 10:44
PROVIDERS: ADMIT Emergency Medicine; ATTEND Emergency Medicine
DX: R53.81 Other malaise (principal); N39.0 Urinary tract infection, site not specified; M54.9 Dorsalgia, unspecified; M25.551 Pain in right hip; I10 Essential (primary) hypertension; E11.9 Type 2 diabetes mellitus without complications; F32.89 Other specified depressive episodes; Z79.84 Long term (current) use of oral hypoglycemic drugs; M19.90 Unspecified osteoarthritis, unspecified site; F32.9 Major depressive disorder, single episode, unspecified; E03.9 Hypothyroidism, unspecified; I25.2 Old myocardial infarction; Z85.3 Personal history of malignant neoplasm of breast; Z95.5 Presence of coronary angioplasty implant and graft; Z86.711 Personal history of pulmonary embolism; Z79.01 Long term (current) use of anticoagulants; Z85.841 Personal history of malignant neoplasm of brain
CPT/HCPCS: 36416; 71046; 72100; 80053; 81001; 82948; 83880; 84484; 85025; 87400; 93005; 93010; 96374; 99217; 99220; 99225; 99232; 99238; 99285; J1650; J3490; J7512

== ENCOUNTER 2017-08-14 13:27 | Inpatient (IN) | payer MEDICARE ==
[2017-08-15] MEDS ORDERED: MAGNESIUM HYDROXIDE 30 ML UDC PO PRN (16:32)
[2017-08-15] MEDS ORDERED: TRAMADOL HCL 50 MG TABLET PO PRN (16:32)
[2017-08-15] MEDS ORDERED: ACETAMINOPHEN 325 MG TAB PO PRN (16:32)
[2017-08-15] MEDS ORDERED: IBUPROFEN 200 MG TABLET PO PRN (16:32)
[2017-08-15] MEDS: ATORVASTATIN 20 MG TABLET PO SCH (21:37)
[2017-08-15] MEDS: VERAPAMIL 40 MG PO SCH (21:38)
[2017-08-15] MEDS ORDERED: PATIENT OWN MED: PO SCH (22:00)
[2017-08-16] MEDS ORDERED: CIPROFLOXACIN HCL 500 MG TABLET PO SCH (06:00)
[2017-08-16] MEDS: LEVOTHYROXINE SOD 112 MCG TAB PO SCH (06:24)
--- NOTE | 2017-08-16 07:50 | History & Physical ---
History of Present Illness - Date Date of Service for History & Physical: 08/16/17 - History of Present Illness Admitting Diagnosis: Deconditioning due to UTI/ Weakness History of Present Illness: patient was admitted to [facility] for UTI ,weakness and possible urosepsis. She was treated with cipro IV and improved but still very weak and unable to take care of herself at home so she was put into the swing bed program to get stronger. General - Cognitive Patterns Speech: Normal Orientation: Oriented x3 - Communication Preferred Language?: Marshallese [employer] Required: No Level of Education: High School Preferred Method of Learning: Seeing Comprehension Ability: No Impairment Able to Read: Yes Able to Write: Yes Select best description of speech pattern: Clear Speech Ability to express ideas and wants: Understood Understanding verbal content: Understands - Psychosocial Well-Being Usual Living Arrangement: Alone - Physical Functioning Activity Level: Up with assist x1 Turning: With partial assist ROM Ability: Moves all extremities Assistive Devices: 2 Wheel Walker, 4 Wheel Walker Ambulation Ability: Needs Assist Bed Mobility: Needs Assist Transfer Ability: Needs Assist Bathing Ability: Needs Assist Personal Hygiene: Needs Assist Dressing Ability: Needs Assist Eating (Feeding) Ability: Independent Toileting Ability: Needs Assist Administer Own Medication: Needs Assist - Continence Bowel Pattern: No Bowel Movement Bladder Pattern: Normal, Urgency, Incontinent Urinary Incontinence: Urge - Dental Status Unable to examine: No Broken or loosely fitting full or partial dentures: No No natural teeth or tooth fragment(s) (edentulous): No Abnormal mouth tissue (ulcers, masses, oral lesions, etc.): No Obvious or likely cavity or broken natural teeth: No Inflamed or bleeding gums or loose natural teeth: No Mouth/facial pain, discomfort or difficulty chewing: No - Nutrition Screening Poor oral intake > 1 week: No Unplanned weight loss in specified time frame: No Nutrition Support via tube feedings or parenteral nutrition: No Pressure Ulcer: No Significantly underweight define as BMI <18.5 kg/m2: No Albumin <2.5mg/dL: No Persistent nausea/vomiting/diarrhea >3 days: No Difficulty chewing/swallowing/mouth sores: No Admitting Diagnosis: No Nutrition Risk Score: Low Risk Review of Systems Reviewed: No additional complaints except as noted below Constitutional: Reports: As per HPI. Denies: Chills, Fever, Malaise, Night sweats, Weakness, Weight change Eyes: Reports: As per HPI. Denies: Eye discharge, Eye pain, Photophobia, Vision change ENT: Reports: As per HPI. Denies: Congestion, Dental pain, Ear pain, Epistaxis , Hearing loss, Throat pain Respiratory: Reports: As per HPI. Denies: Cough, Dyspnea, Hemoptysis, Stridor, Wheezes Cardiovascular: Reports: As per HPI. Denies: Arrhythmia, Chest pain, Dyspnea on exertion, Edema, Murmurs, Orthopnea, Palpitations, Paroxysmal nocturnal dyspnea, Rheumatic Fever, Syncope Endocrine: Reports: As per HPI. Denies: Fatigue, Heat or cold intolerance, Polydipsia, Polyuria Gastrointestinal: Reports: As per HPI. Denies: Abdominal pain, Constipation, Diarrhea, Hematemesis, Hematochezia, Melena, Nausea, Vomiting Genitourinary: Reports: As per HPI. Denies: Abnormal menses, Discharge, Dyspareunia, Dysuria, Frequency, Hematuria, Incontinence, Retention, Urgency Musculoskeletal: Reports: As per HPI, Arthralgia. Denies: Back pain, Gout, Joint swelling, Myalgia, Neck pain Skin: Reports: As per HPI. Denies: Bruising, Change in color, Change in hair/ nails, Lesions, Pruritus, Rash Neurological: Reports: As per HPI. Denies: Abnormal gait, Confusion, Headache, Numbness, Paresthesias, Seizure, Tingling, Tremors, Vertigo, Weakness Psychiatric: Reports: As per HPI. Denies: Anxiety, Auditory hallucinations, Depression, Homicidal thoughts, Suicidal thoughts, Visual hallucinations Hematological/Lymphatic: Reports: As per HPI. Denies: Anemia, Blood Clots, Easy bleeding, Easy bruising, Swollen glands Past Medical History - SOCIAL HISTORY Smoking Status: Never smoker Alcohol Use: None - SURGICAL HISTORY Past Surgical History: Hysterectomy. Heart Stents X 5. Cholecystectomy. Appendectomy. T&A - RESPIRATORY Hx Respiratory Disorders: Yes Hx Dyspnea: Yes Hx Pneumonia: Yes (childhood) Hx Pulmonary Embolism: Yes (2017) Hx Tuberculosis: No - CARDIOVASCULAR Hx Cardio Disorders: Yes Hx Cardiac Cath: Yes Hx Chest Pain: Yes Hx Heart Attack: Yes ("Around 2006") Hx Hypertension: Yes Hx Irregular Heartbeat: Yes (with exertion) - NEURO Hx Neuro Disorders: No Hx Brain Tumor: Yes Hx Dizziness: Yes - GI Hx GI Disorders: Yes Hx Hiatal Hernia: Yes - Hx Genitourinary Disorders: Yes Hx Bladder Problem: Yes Hx UTI: Yes (hx) - ENDOCRINE Hx Endocrine Disorders: Yes Hx Diabetes: Yes Hx Thyroid Disease: Yes - MUSCULOSKELETAL Hx Musculoskeletal Disorders: Yes Hx Arthritis: Yes - PSYCH Hx Psych Problems: Yes Hx Depression: Yes - HEMATOLOGY/ONCOLOGY Hx Hematology/Oncology Disorders: Yes Hx Cancer: Yes (Breast) Hx Radiation Therapy: Yes (2007) Family Medical History Any Significant Family History?: Yes Hx Anxiety: Children Hx Dementia: Mother Hx Depression: Mother Hx Diabetes: Father, Children *Diabetes Comment: Aunt Hx Heart Disease: Father Hx HTN: Father Hx Resp Disorders: Father Hx Stroke: Grandparents H&P Meds/Allergies - Allergies Allergies: Allergies Allergy/AdvReac Type Severity Reaction Status Date / Time No Known Drug Allergies Allergy Verified 08/12/17 21:16 - Home Medications Previous Rx's Medication Instructions Recorded Ciprofloxacin HCl [Cipro] 500 mg PO Q12HR #20 tablet 08/15/17 - Active Medications Active Medications: Current Medications Acetaminophen (Tylenol 325mg) 650 mg PO Q6H PRN PRN Reason: PAIN/TEMP Aspirin (Ecotrin (Ec)) 81 mg PO DAILY [facility] Atorvastatin Calcium (Lipitor) 40 mg PO QHS [facility] Last Admin: 08/15/17 21:37 Dose: 40 mg Bupropion HCl (Wellbutrin Sr) 150 mg PO DAILY [facility] Ciprofloxacin (Cipro) 500 mg PO Q12HR [facility] Stop: 08/26/17 06:01 Last Admin: 08/16/17 06:24 Dose: 500 mg Docusate Sodium (Colace) 100 mg PO DAILY [facility] Enoxaparin Sodium (Lovenox) 40 mg SQ DAILY [facility] Furosemide (Lasix) 20 mg PO QAM [facility] Glipizide (Glucotrol Xl) 10 mg PO DAILY [facility] Ibuprofen (Motrin 200mg) 200 mg PO Q4H PRN PRN Reason: Pain - General Levothyroxine Sodium (Synthroid) 112 [facility]cg [facility] Last Admin: 08/16/17 06:24 Dose: 112 mcg Lidocaine (Lidoderm) 1 each TOP DAILY [facility] Losartan Potassium (Cozaar) 50 mg PO DAILY [facility] Magnesium Hydroxide (Milk Of Magnesium) 30 ml PO DAILY PRN PRN Reason: INDIGESTION Metoprolol Succinate (Toprol Xl) 100 mg PO DAILY [facility] Miscellaneous (Remove Patch) 1 each TD QHS [facility] Patient Own Med: (Verapamil 40mg) 1 each PO BID [facility] Last Admin: 08/15/17 21:38 Dose: 1 each Prednisone (Prednisone 5mg) 5 mg PO DAILYWM [facility] Tramadol HCl (Ultram) 50 mg PO Q8H PRN PRN Reason: Pain - Severe (8-10) Physical Exam - Vital Signs Vital Signs: Vital Signs - Last 24 Hrs Temp Pulse Resp BP Pulse Ox 08/15/17 19:59 97.9 F 58 L 20 145/84 97 08/15/17 16:20 97.7 F 68 18 133/81 96 - General General Appearance: Alert, Oriented x3, Cooperative, No acute distress - Head Head exam: Normal inspection - Eye Eye exam: Normal appearance, PERRL Pupils: Normal accommodation - ENT ENT exam: Normal exam, Mucous membranes moist, Normal external ear exam, Normal orophraynx, TM's normal bilaterally Ear exam: Normal external inspection. negative: External canal tenderness Nasal Exam: Normal inspection. negative: Discharge, Sinus tenderness Mouth exam: Normal external inspection, Tongue normal Teeth exam: Normal inspection. negative: Dental caries Throat exam: Normal inspection. negative: Tonsillar erythema, Tonsillar exudate - Neck Neck exam: Normal inspection, Full ROM. negative: Tenderness - Respiratory Respiratory exam: Normal lung sounds bilaterally. negative: Respiratory distress - Cardiovascular Cardiovascular Exam: Regular rate, Normal rhythm, Normal heart sounds - GI/Abdominal GI/Abdominal exam: Soft, Normal bowel sounds. negative: Tenderness - Rectal Rectal exam: Deferred - exam: Deferred - Extremities Extremities exam: Normal inspection, Full ROM, Normal capillary refill, Other ( weakness and walks with a walker). negative: Tenderness - Back Back exam: Reports: Normal inspection, Full ROM. Denies: Muscle spasm, Rash noted, Tenderness - Neurological Neurological exam: Alert, Normal gait, Oriented X3, Reflexes normal - Psychiatric Psychiatric exam: Normal affect, Normal mood - Skin Skin exam: Dry, Intact, Normal color, Warm H&P Results - Labs Labs Last 24 Hours: Laboratory Results - last 24 hr 08/15/17 17:00 POC Glucose 265 H Discharge Potential - Discharge Needs Community Services Used Prior to Admission: None Patient Discharge Plan Description: Return Home Community Services Needed at Discharge: Home Delivered Meals, Home Health Aide, Occupational Therapy, Physical Therapy, Pathways to Better Health Plan - Swing Bed Certification Initial Certification Due: 08/15/17 14 Day Re-Cert Due: 08/29/17 44 Day Re-Cert Due: 09/28/17 74 Day Re-Cert Due: 10/28/17 - Detailed Diagnosis and Plan (1) Physical deconditioning Current Visit: Yes Status: Acute Base Code: R53.81 - OTHER MALAISE Priority: High (2) UTI (urinary tract infection) Current Visit: No Status: Acute Base Code: N39.0 - URINARY TRACT INFECTION, SITE NOT SPECIFIED Comment: 08/13/17: UA showed positive leukocyte esterase, WBC normal, afebrile, urine culture pending. Likely contributing to generalized weakness. - Continue Cipro 400mg IVPB q12h - VS q8h - repeat labs qam (3) Weakness Current Visit: No Status: Acute Base Code: R53.1 - WEAKNESS Comment: : Acute on chronic weakness. Patient unable to independently ambulate, requiring 2-3 person assist. Currently lives alone. Likely deconditioning with UTI causing acute exacerbation. 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
[2017-08-16] MEDS: PREDNISONE 5 MG TAB PO SCH (09:15)
[2017-08-16] MEDS: BUPROPION HCL 150 MG TAB.SR.12H PO SCH (09:16)
[2017-08-16] MEDS: GLIPIZIDE XL 5 MG TABLET PO SCH (09:16)
[2017-08-16] MEDS: DOCUSATE SODIUM 100 MG CAPSULE PO SCH (09:17)
[2017-08-16] MEDS: FUROSEMIDE 20 MG TABLET PO SCH (09:17)
[2017-08-16] MEDS: ASPIRIN 81 MG TABEC PO SCH (09:18)
[2017-08-16] MEDS: METOPROLOL SUCC 50 MG TABLET PO SCH (09:18)
[2017-08-16] MEDS: LOSARTAN POTASSIUM 25 MG TABLET PO SCH (09:19)
[2017-08-16] MEDS: ENOXAPARIN 40 MG/0.4 ML SYR SQ SCH (09:21)
[2017-08-16] MEDS: VERAPAMIL 40 MG PO SCH ×2 (09:21→21:35)
[2017-08-16] MEDS: LIDOCAINE 5% PATCH TOP SCH (09:21)
--- NOTE | 2017-08-16 10:47 | Rehab Evaluation ---
Patient Information - Patient Information Diagnosis: Deconditioning due to UTI/weakness Ordered Treatment: PT Evaluate and Treat Status: Initial Evaluation History: Detail (The patient was previously seen as an inpatient and is now transferred to [facility] Bed for Rehabilitation.) Past Medical/Surgical Hx: PAST MEDICAL/SURGICAL HISTORY Past Surgical History Hysterectomy Heart Stents X 5 Cholecystectomy Appendectomy T&A PMH - Respiratory Hx Respiratory Disorders Yes Hx Asthma No Hx Bronchitis No Hx Chronic Obstructive No Pulmonary Disease (COPD) Hx Dyspnea Yes Hx Pneumonia Yes: childhood Hx Pulmonary Embolism Yes: 2016 Hx Sleep Apnea No Hx Tuberculosis No Hx of CPAP No PMH - Cardiovascular Hx Cardiovascular Disorders Yes Hx Abnormal EKG No Hx Cardiac Catheterization Yes Hx Chest Pain Yes Hx Congestive Heart Failure No Hx Deep Vein Thrombosis No Hx Edema No Hx Heart Attack Yes: "Around 2006" Hx Hypertension Yes Hx Hypotension No Hx Irregular Heartbeat Yes: with exertion Hx Palpitations No Hx Pacemaker/Defibrillator No Hx Vascular Disease No Hx Transient Ischemic Attacks No (TIA) PMH - Neuro Hx Neurological Disorders No Hx Brain Tumor Yes Hx Cerebrovascular Accident No Hx Dementia No Hx Dizziness Yes Hx Headaches No Hx Neuropathy No Hx Parkinson's Disease No Hx Seizures No Hx Speech Problem No Hx Syncope No Hx Transient Ischemic Attacks No (TIA) PMH - GI Hx Gastrointestinal Disorders Yes Hx Abdominal Pain No Hx Celiac Disease No Hx Crohn's Disease No Hx Diverticulitis No Hx Gastrointestinal Bleed No Hx Gastroesophageal Reflux No Hx Hepatitis/Jaundice No Hx Hiatal Hernia Yes Hx Irritable Bowel No Hx Liver Disease No Hx Nausea/Vomiting No Hx Obstructive Bowel No Hx Pancreatitis No Hx Rectal Bleeding No Hx Ulcer No Hx Weight Loss/Weight Gain No PMH - Hx Genitourinary Disorders Yes Hx Bladder Problem Yes Hx Dialysis No Hx Kidney Stones No Hx Renal Disease No Hx Urinary Tract Infection Yes: hx PMH - Endocrine Hx Endocrine Disorders Yes Hx Diabetes Yes Hx Thyroid Disease Yes PMH - Musculoskeletal Hx Musculoskeletal Disorders Yes Hx Arthritis Yes Hx Back Injury No Hx Fibromyalgia No Hx Gout No Hx Musculoskeletal Disease No Hx Osteoporosis No PMH - Psych Hx Psychiatric Problems Yes Hx Anxiety No Hx Behavior Problems No Hx Depression Yes Hx Emotional Abuse No Hx Sexual Abuse No Hx Suicide Attempt No PMH - Hematology/Oncology Hx Hematology/Oncology Yes Disorders Hx Anemia No Hx Blood Disorders No Hx Bruising No Hx Cancer Yes: Breast Hx Chemotherapy No Hx Radiation Therapy Yes: 2007 Hx Clotting Problems No Hx Sickle Cell Disease No Hx Unexplained Bleeding No Hx Blood Transfusion Reaction No Premorbid Status: Detail (The patient per her report was independent with mobility using a 4 wheeled walker. The patient had sleeping in a new lift chair /recliner and not her bed. The patient stated that she did at times have difficulty with sit to and from stand transfer from lower surfaces including her toilet.) Social History: Detail (The patient lives alone in a one story house with a basement, she primarily stays on the main floor. Her home enterance has 3 steps and one handrailing at the enterance. Her bathroom is equipped with a tub /shower combination with 2 grab bars and a standard toilet without grab bars. She states she usually stands to shower. She reports she was independent with all ADL's, meal prep, laundry, home management and yard work. She had a four wheeled walker and lift chair.) Precautions: [place], Fall - Time With Patient Total Time Spent With Patient (Min): 30 Treatment Procedures: Detail (Initial evaluation.) Subjective Information - Subjective Information Per Patient (The patient denies pain. Previously as an inpatient , she had level 6 pain in R hip radiating to toes. The patient reports pain medication has controlled her pain.) Objective Data - Mental Status Patient Orientation: Oriented x3 - ROM Within normal limits (The patient's AROM in bilateral LE's are WNL. Refer to OT note for UE AROM.) - Strength/Tone Not within normal limits (The patient's R LE strength was hip flexors and extensors 3+/5, hip adductors and abductors 4-/5,knee flexors 4-/5, knee extensors 4/5, L LE strength hip flexors 4/4, hip abductors and adductors 4+/5, knee extensors 4+/5, knee flexors 4/5, ankle musculature 4+/5. Refer to OT note for UE strength.) - Bed Mobility Needs Assist (Not assessed. The patient does not sleep in a bed at home.) - Transfers Independent (The patient was independent with sit to and from stand transfer with toilet transfer with a riser seat.) - Balance Balance Sitting: Good Balance Standing: Fair (The patient's balance in standing was fair. The patient was able to stand and pull up her pants with out loss of balance. The patient's balance was not formally tested using an objective balance scale.) - Sensation Intact (no hypersensitivity was noted as an inpatient.) - Gait Detail (The patient ambulated with a two wheeled walker with CG of one for safety a distance of 80 feet x 1.) Therapy Assessment - Therapy Assessment Detail (The patient exhibits decreased LE strength, CG for safety with ambulation, decreased ambulation distance. The patient was independent with toilet transfer. Feel the patient is a good rehab. candidate to return to previous functional level and increase LE strength.) Problem List - Problem List Physical Therapy Problem List: Detail (1) Decreased LE strength 2) Decreased ability to complete sustained physical activity 3) Decreased balance in standing ) Goals - Goals Physical Therapy Goals: 1) Increase LE strength 1/3 muscle grade to improve stability of gait. 2) Formally assess patient's balance using objective balance test. 3) The patient will ambulate on 3 steps with supervison. 4) The patient will be independent with all transfers. 5) The patient will ambulate with appropriate assistive device a distance of 150 feet plus independently. Prognosis - Prognosis Good Plan - Plan Physical Therapy Plan: PT M-F, 1 to 2 times a day for gait training, transfer training, LE strengthening exercises and balance exercises.
--- NOTE | 2017-08-16 14:03 | Rehab Evaluation ---
Patient Information - Patient Information Diagnosis: Deconditioning due to UTI/weakness Ordered Treatment: OT Evaluate and Treat Status: Initial Evaluation History: Detail (The patient was previously seen as an inpatient and is now transferred to [facility].) Past Medical/Surgical Hx: PAST MEDICAL/SURGICAL HISTORY Past Surgical History Hysterectomy Heart Stents X 5 Cholecystectomy Appendectomy T&A PMH - Respiratory Hx Respiratory Disorders Yes Hx Asthma No Hx Bronchitis No Hx Chronic Obstructive No Pulmonary Disease (COPD) Hx Dyspnea Yes Hx Pneumonia Yes: childhood Hx Pulmonary Embolism Yes: 2017 Hx Sleep Apnea No Hx Tuberculosis No Hx of CPAP No PMH - Cardiovascular Hx Cardiovascular Disorders Yes Hx Abnormal EKG No Hx Cardiac Catheterization Yes Hx Chest Pain Yes Hx Congestive Heart Failure No Hx Deep Vein Thrombosis No Hx Edema No Hx Heart Attack Yes: "Around 2006" Hx Hypertension Yes Hx Hypotension No Hx Irregular Heartbeat Yes: with exertion Hx Palpitations No Hx Pacemaker/Defibrillator No Hx Vascular Disease No Hx Transient Ischemic Attacks No (TIA) PMH - Neuro Hx Neurological Disorders No Hx Brain Tumor Yes Hx Cerebrovascular Accident No Hx Dementia No Hx Dizziness Yes Hx Headaches No Hx Neuropathy No Hx Parkinson's Disease No Hx Seizures No Hx Speech Problem No Hx Syncope No Hx Transient Ischemic Attacks No (TIA) PMH - GI Hx Gastrointestinal Disorders Yes Hx Abdominal Pain No Hx Celiac Disease No Hx Crohn's Disease No Hx Diverticulitis No Hx Gastrointestinal Bleed No Hx Gastroesophageal Reflux No Hx Hepatitis/Jaundice No Hx Hiatal Hernia Yes Hx Irritable Bowel No Hx Liver Disease No Hx Nausea/Vomiting No Hx Obstructive Bowel No Hx Pancreatitis No Hx Rectal Bleeding No Hx Ulcer No Hx Weight Loss/Weight Gain No PMH - Hx Genitourinary Disorders Yes Hx Bladder Problem Yes Hx Dialysis No Hx Kidney Stones No Hx Renal Disease No Hx Urinary Tract Infection Yes: hx PMH - Endocrine Hx Endocrine Disorders Yes Hx Diabetes Yes Hx Thyroid Disease Yes PMH - Musculoskeletal Hx Musculoskeletal Disorders Yes Hx Arthritis Yes Hx Back Injury No Hx Fibromyalgia No Hx Gout No Hx Musculoskeletal Disease No Hx Osteoporosis No PMH - Psych Hx Psychiatric Problems Yes Hx Anxiety No Hx Behavior Problems No Hx Depression Yes Hx Emotional Abuse No Hx Sexual Abuse No Hx Suicide Attempt No PMH - Hematology/Oncology Hx Hematology/Oncology Yes Disorders Hx Anemia No Hx Blood Disorders No Hx Bruising No Hx Cancer Yes: Breast Hx Chemotherapy No Hx Radiation Therapy Yes: 2007 Hx Clotting Problems No Hx Sickle Cell Disease No Hx Unexplained Bleeding No Hx Blood Transfusion Reaction No Premorbid Status: Detail (The patient lives alone in a one story house with a basement, she primarily stays on the main floor. Her home has 3 steps and one handrailing at the entrance. Her bathroom is equipped with a tub/shower combination with 1 grab bar outside of the shower and she uses the soap dish as a grab bar. She has a standard toilet without grab bars. She states she usually stands to shower. She reports she was independent with all ADL's, meal prep, laundry, home management and yard work. She had a four wheeled walker and lift chair. The patient had been sleeping in a new lift chair/recliner and not her bed. The patient stated that she has difficulty with sit to and from stand transfer from lower surfaces including her toilet at times.) Social History: Detail (Supportive son and daughter live close by.) Precautions: [place], Fall - Time With Patient Total Time Spent With Patient (Min): 50 Treatment Procedures: Detail (OT eval low complexity) Subjective Information - Subjective Information Per Patient Objective Data - Pain Pain Present: No (Pt reports no pain currently.) - Mental Status Patient Orientation: Oriented x3 - Visual Perception Appears within normal limits for therapeutic activities (Pt wears glasses at all times.) - ROM Within normal limits (Admaa UE AROM grossly WNL) - Strength/Tone Within normal limits (Adama UE strength 4 to 4+/5 throughout although she demonstrated UE fatigue with ADL activity.) - Coordination Appears within normal limits for therapeutic activities - Transfers Needs Assist (CG for sit to stand from chair, raised commode and shower bench with use of grab bar.) - Balance Balance Sitting: Good Balance Standing: Fair (Pt required CG assist for standing during showering and dressing) - Sensation Intact - Gait Detail (Pt able to ambulate in room with 2 wheeled walker and CG assist.) - ADL's/IADL's Detail (Pt able to doff gown, briefs and slippers Indly, toileted Indly and showered in sitting and standing with CG assist during standing. She was able to don bra with mod assist to hook, she donned PJ top Indly, underwear and PJ bottoms with CG assist for standing to drum puller hips, she donned slippers with max assist to hold feet onto opposite knee. She was Ind with brushing hair.) Therapy Assessment - Therapy Assessment Detail (Pt requires CG assist for standing and ambulation, she requires assist for donning bra and slippers, she presents with decreased UE endurance and overall endurance needed to return home and be Ind with ADLs/IADLs.) Problem List - Problem List Physical Therapy Problem List: Detail (1) Decreased LE strength 2) Decreased ability to complete sustained physical activity 3) Decreased balance in standing ) Occupational Therapy Problem List: Detail (1. Decreased endurance and UE functional endurance needed for safe and Ind ADLs/IADLs. 2. Decreased Ind with total body dressing. 3. Decreased Ind with transfers/mobility needed for Ind ADLs.) Goals - Goals Physical Therapy Goals: 1) Increase LE strength 1/3 muscle grade to improve stability of gait. 2) Formally assess patient's balance using objective balance test. 3) The patient will ambulate on 3 steps with supervison. 4) The patient will be independent with all transfers. 5) The patient will ambulate with appropriate assistive device a distance of 150 feet plus independently. Occupational Therapy Goals: 1. Pt will demonstrate improved UE function and overall endurance needed for safe and Ind ADLs/IADLs. 2. Pt will be Ind with total body dressing. 3. Pt will be safe and Ind with transfers and all functional mobility needed for ADLs/IADLs. Prognosis - Prognosis Good Plan - Plan Physical Therapy Plan: PT M-F, 1 to 2 times a day for gait training, transfer training, LE strengthening exercises and balance exercises. Occupational Therapy Plan: OT 2-4 days per week to address self cares, functional mobility, UE function and endurance needed for Ind with ADLs/IADLs.
[2017-08-16] MEDS: CIPROFLOXACIN HCL 500 MG TABLET PO SCH (17:31)
[2017-08-16] MEDS: ATORVASTATIN 20 MG TABLET PO SCH (21:37)
[2017-08-16] MEDS: REMOVE PATCH 1 EACH MISC TD SCH (21:43)
[2017-08-17] MEDS: LEVOTHYROXINE SOD 112 MCG TAB PO SCH (06:59)
[2017-08-17] MEDS: CIPROFLOXACIN HCL 500 MG TABLET PO SCH ×2 (06:59→17:25)
[2017-08-17] MEDS: PREDNISONE 5 MG TAB PO SCH (08:48)
[2017-08-17] MEDS: DOCUSATE SODIUM 100 MG CAPSULE PO SCH (09:45)
[2017-08-17] MEDS: METOPROLOL SUCC 50 MG TABLET PO SCH (09:46)
[2017-08-17] MEDS: FUROSEMIDE 20 MG TABLET PO SCH (09:47)
[2017-08-17] MEDS: LOSARTAN POTASSIUM 25 MG TABLET PO SCH (09:47)
[2017-08-17] MEDS: GLIPIZIDE XL 5 MG TABLET PO SCH (09:48)
[2017-08-17] MEDS: BUPROPION HCL 150 MG TAB.SR.12H PO SCH (09:49)
[2017-08-17] MEDS: ASPIRIN 81 MG TABEC PO SCH (09:50)
[2017-08-17] MEDS: VERAPAMIL 40 MG PO SCH ×2 (09:50→22:17)
[2017-08-17] MEDS: ENOXAPARIN 40 MG/0.4 ML SYR SQ SCH (09:51)
[2017-08-17] MEDS: LIDOCAINE 5% PATCH TOP SCH (10:16)
--- NOTE | 2017-08-17 11:50 | Physical Therapy Tx Note ---
Physical Therapy Tx Note - Treatment Note Tolerated: Good Total Time Spent With Patient: 30 Physical Therapy Tx Note: Detail (The patient was sitting on the edge of bed when PT arrived. The patient denies pain. The patient ambulated with 4 wheeled walker a distance of 100 feet x 1 and 50 feet x 1 with supervision for safety and verbal cues not to place walker too far out. The patient completed LE strengthening exercises including : hip adductor squeezes, hip abduction and knee flexion with use of red theraband and LAQ all x 10 reps and ankle x 10 reps.The patient continues to progress nicely with mobility.) Physical Therapy Problem List: Detail (1) Decreased LE strength 2) Decreased ability to complete sustained physical activity 3) Decreased balance in standing ) Physical Therapy Goals: 1) Increase LE strength 1/3 muscle grade to improve stability of gait. 2) Formally assess patient's balance using objective balance test. 3) The patient will ambulate on 3 steps with supervison. 4) The patient will be independent with all transfers. 5) The patient will ambulate with appropriate assistive device a distance of 150 feet plus independently. Physical Therapy Plan: PT M-F, 1 to 2 times a day for gait training, transfer training, LE strengthening exercises and balance exercises.
--- NOTE | 2017-08-17 17:44 | Occupational Therapy Tx Note ---
Occupational Therapy Tx Note - Treatment Note Tolerated: Good Total Time Spent With Patient: 40 Occupational Therapy Treatment Note: Detail (O: SBA sit<>stand from arm chair to walker, and standing to seated on 3-in-1 commode. Pt. modified Ind. with toileting, including hygiene and clothing management. Educ. provided in transfer techniques (reaching back towards chair to prevent walker tipping). Educ. provided in B hand strength HEP using yellow theraputty; putty and h/o provided. Pt. returned demo. and verbalized understanding. Standing tolerance for 11 minutes with dynamic reaching activity SBA with no LOB; pt. required occasional unilateral support on walker. Pt. stated min c/o back pain during standing. A: Pt. ludwig. well, and demo. ability to stand for an adequate duration with use of UE for functional task (i.e. completing ADL's such as standing at sink to brush teeth). P: cont. POC) Occupational Therapy Problem List: Detail (1. Decreased endurance and UE functional endurance needed for safe and Ind ADLs/IADLs. 2. Decreased Ind with total body dressing. 3. Decreased Ind with transfers/mobility needed for Ind ADLs.) Occupational Therapy Goals: 1. Pt will demonstrate improved UE function and overall endurance needed for safe and Ind ADLs/IADLs. 2. Pt will be Ind with total body dressing. 3. Pt will be safe and Ind with transfers and all functional mobility needed for ADLs/IADLs. Occupational Therapy Plan: OT 2-4 days per week to address self cares, functional mobility, UE function and endurance needed for Ind with ADLs/IADLs.
[2017-08-17] MEDS: ATORVASTATIN 20 MG TABLET PO SCH (22:16)
[2017-08-17] MEDS: REMOVE PATCH 1 EACH MISC TD SCH (22:17)
[2017-08-18] MEDS: LEVOTHYROXINE SOD 112 MCG TAB PO SCH (07:03)
[2017-08-18] MEDS: CIPROFLOXACIN HCL 500 MG TABLET PO SCH ×2 (07:03→17:29)
[2017-08-18] MEDS: PREDNISONE 5 MG TAB PO SCH (08:49)
[2017-08-18] MEDS: LOSARTAN POTASSIUM 25 MG TABLET PO SCH (10:03)
[2017-08-18] MEDS: ASPIRIN 81 MG TABEC PO SCH (10:03)
[2017-08-18] MEDS: FUROSEMIDE 20 MG TABLET PO SCH (10:03)
[2017-08-18] MEDS: DOCUSATE SODIUM 100 MG CAPSULE PO SCH (10:03)
[2017-08-18] MEDS: GLIPIZIDE XL 5 MG TABLET PO SCH (10:03)
[2017-08-18] MEDS: BUPROPION HCL 150 MG TAB.SR.12H PO SCH (10:03)
[2017-08-18] MEDS: METOPROLOL SUCC 50 MG TABLET PO SCH (10:03)
[2017-08-18] MEDS: LIDOCAINE 5% PATCH TOP SCH (10:04)
[2017-08-18] MEDS: VERAPAMIL 40 MG PO SCH ×2 (10:04→21:17)
[2017-08-18] MEDS: ENOXAPARIN 40 MG/0.4 ML SYR SQ SCH (10:04)
--- NOTE | 2017-08-18 10:11 | Occupational Therapy Tx Note ---
Occupational Therapy Tx Note - Treatment Note Tolerated: Good Total Time Spent With Patient: 35 Occupational Therapy Treatment Note: Detail (S: Pt up at EOB, reports she is ready for OT. O: Sit to stand and amb to closet to retrieve clothing and then to bathroom with 2 wheeled walker and SBA. Pt sat on walker seat at sink to complete self cares. Pt doffed PJ top, PJ bottom, slipper socks and underwear Indly. Pt completed partial sponge bathing at sink after set up. Pt completed grooming/hygiene tasks at sink in standing and sitting Indly. Pt amb to chair with 2 wheeled walker and SBA. She donned underpants, pants, shirt, socks and tennis shoes Indly although she had difficulty bending legs to opposite knee to don socks. Pt left up in chair. A: Ind with sponge bathing, Ind with dressing (with exception of bra), mobility continues to improve) Occupational Therapy Problem List: Detail (1. Decreased endurance and UE functional endurance needed for safe and Ind ADLs/IADLs. 2. Decreased Ind with total body dressing. 3. Decreased Ind with transfers/mobility needed for Ind ADLs.) Occupational Therapy Goals: 1. Pt will demonstrate improved UE function and overall endurance needed for safe and Ind ADLs/IADLs. 2. Pt will be Ind with total body dressing. 3. Pt will be safe and Ind with transfers and all functional mobility needed for ADLs/IADLs. Prognosis: Good Occupational Therapy Plan: OT 2-4 days per week to address self cares, functional mobility, UE function and endurance needed for Ind with ADLs/IADLs.
--- NOTE | 2017-08-18 14:58 | Physical Therapy Tx Note ---
Physical Therapy Tx Note - Treatment Note Tolerated: Good Total Time Spent With Patient: 35 Physical Therapy Tx Note: Detail (Patient states no new complaints. Patient transferred sit to and from stand SBA x1. Patient ambulated 10 feet with wheeled walker SBA x1. Patient transferred sit to and from stand SBA x1. Patient ambulated 222 feet with wheeled walker SBA x1. Patient performed the following seated exercises x15-20 reps each: heel raises, toe raises, marching, LAQ, hamstring curls with red theraband, and hip abduction with red theraband. Patient tolerated treatment well. Patient displays decreased strength and endurance with hamstring curls with theraband. Patient reports LEs fatigued after treatment. Patient was left seated in chair with call light within reach. ) Physical Therapy Problem List: Detail (1) Decreased LE strength 2) Decreased ability to complete sustained physical activity 3) Decreased balance in standing ) Physical Therapy Goals: 1) Increase LE strength 1/3 muscle grade to improve stability of gait. 2) Formally assess patient's balance using objective balance test. 3) The patient will ambulate on 3 steps with supervison. 4) The patient will be independent with all transfers. 5) The patient will ambulate with appropriate assistive device a distance of 150 feet plus independently. Prognosis: Good Physical Therapy Plan: PT M-F, 1 to 2 times a day for gait training, transfer training, LE strengthening exercises and balance exercises.
[2017-08-18] MEDS: ATORVASTATIN 20 MG TABLET PO SCH (21:16)
[2017-08-18] MEDS: REMOVE PATCH 1 EACH MISC TD SCH (21:18)
[2017-08-19] MEDS: CIPROFLOXACIN HCL 500 MG TABLET PO SCH ×2 (06:10→18:40)
[2017-08-19] MEDS: LEVOTHYROXINE SOD 112 MCG TAB PO SCH (06:10)
[2017-08-19] MEDS: PREDNISONE 5 MG TAB PO SCH (08:10)
[2017-08-19] MEDS: GLIPIZIDE XL 5 MG TABLET PO SCH (10:10)
[2017-08-19] MEDS: METOPROLOL SUCC 50 MG TABLET PO SCH (10:10)
[2017-08-19] MEDS: BUPROPION HCL 150 MG TAB.SR.12H PO SCH (10:11)
[2017-08-19] MEDS: LOSARTAN POTASSIUM 25 MG TABLET PO SCH (10:11)
[2017-08-19] MEDS: DOCUSATE SODIUM 100 MG CAPSULE PO SCH (10:11)
[2017-08-19] MEDS: FUROSEMIDE 20 MG TABLET PO SCH (10:11)
[2017-08-19] MEDS: ASPIRIN 81 MG TABEC PO SCH (10:11)
[2017-08-19] MEDS: LIDOCAINE 5% PATCH TOP SCH (10:12)
[2017-08-19] MEDS: VERAPAMIL 40 MG PO SCH ×2 (10:12→22:00)
[2017-08-19] MEDS: ENOXAPARIN 40 MG/0.4 ML SYR SQ SCH (10:23)
--- NOTE | 2017-08-19 11:27 | Physical Therapy Tx Note ---
Physical Therapy Tx Note - Treatment Note Tolerated: Good Total Time Spent With Patient: 35 Physical Therapy Tx Note: Detail (Patient states doing good today. Patient transferred sit to and from stand SBA x1. Patient ambulated 258 feet with four wheeled walker SBA x1. Patient required two standing rest breaks with ambulation due to UE fatigue. Patient performed the following exercises x15 reps each: seated heel raises, seated toe raises, LAQ, marching, hamstring curls with red theraband, seated hip abduction with red theraband, and isometric hip adduction. Patient tolerated treatment well. Patient reports feeling tired after treatment. Patient was left seated in chair with call light within reach.) Physical Therapy Problem List: Detail (1) Decreased LE strength 2) Decreased ability to complete sustained physical activity 3) Decreased balance in standing ) Physical Therapy Goals: 1) Increase LE strength 1/3 muscle grade to improve stability of gait. 2) Formally assess patient's balance using objective balance test. 3) The patient will ambulate on 3 steps with supervison. 4) The patient will be independent with all transfers. 5) The patient will ambulate with appropriate assistive device a distance of 150 feet plus independently. Prognosis: Good Physical Therapy Plan: PT M-F, 1 to 2 times a day for gait training, transfer training, LE strengthening exercises and balance exercises.
[2017-08-19] MEDS ORDERED: BUPROPION HCL 150 MG TAB.SR.12H PO ONE (15:15)
[2017-08-19] MEDS: ISOSORBIDE MONONITRATE 60 MG TAB.ER.24H PO SCH (15:17)
--- NOTE | 2017-08-19 15:43 | Physical Therapy Tx Note ---
Physical Therapy Tx Note - Treatment Note Tolerated: Good Total Time Spent With Patient: 40 Physical Therapy Tx Note: Detail (Pt sitting up in recliner upon arrival; cooperative for therapy. Expressing frustration that she isn't walking more; she thinks she should be able to walk independently and needs to walk more so that she can go home soon. Denies pain. Administered Kendrick Balance test; scored 34/56, mostly because supervision is needed for most activities, or needs hands for transfers. This is medium risk for falling. Performed 10 reps each of hamstring curls w/manual resistance, shoulder flexion, shoulder abduction, push/pull. Ambulated w/four wheeled walker from bedside to surgical waiting area (about 150 feet) w/VCs for upright posture, achieving consistent heel strike. Sat briefly to rest, then resumed walking back to room. All w/ SBA. Fatigued at end of treatment. Left up in chair w/call light and bedside table in reach.) Physical Therapy Problem List: Detail (1) Decreased LE strength 2) Decreased ability to complete sustained physical activity 3) Decreased balance in standing ) Physical Therapy Goals: 1) Increase LE strength 1/3 muscle grade to improve stability of gait. 2) Formally assess patient's balance using objective balance test. 3) The patient will ambulate on 3 steps with supervison. 4) The patient will be independent with all transfers. 5) The patient will ambulate with appropriate assistive device a distance of 150 feet plus independently. Prognosis: Good Physical Therapy Plan: PT M-F, 1 to 2 times a day for gait training, transfer training, LE strengthening exercises and balance exercises.
[2017-08-19] MEDS: ATORVASTATIN 20 MG TABLET PO SCH (21:59)
[2017-08-19] MEDS: REMOVE PATCH 1 EACH MISC TD SCH (22:00)
[2017-08-20] MEDS: LEVOTHYROXINE SOD 112 MCG TAB PO SCH (06:09)
[2017-08-20] MEDS: CIPROFLOXACIN HCL 500 MG TABLET PO SCH ×2 (06:09→17:50)
--- NOTE | 2017-08-20 08:31 | Occupational Therapy Tx Note ---
Occupational Therapy Tx Note - Treatment Note Tolerated: Good Total Time Spent With Patient: 60 (ADL) Occupational Therapy Treatment Note: Detail (S: Pt ready for showering/ dressing. O: Supine to sit Indly, amb to closet to retrieve clothing Indly with 2 wheeled walker, amb to toilet and completed toileting Indly. Doffed PJ top, bottoms, slippers and underwear Indly. Amb to sink and completed oral hygiene in standing Indly. Amb to shower with 2 wheeled walker and completed showering in sitting and standing Indly. Pt dried self Indly. Pt donned underpants, pants, bra, shirt, socks and tennis shoes Indly except bra. Pt was unable to hook bra in front after multiple attemps. Bra fastened per OT and she was able to turn bra around Indly. Pt brushed hair Indly and amb back to chair with 2 wheeled walker Indly. A: Ind with showering and dressing with exception of bra. Ind with functional mobility in room with 2 wheeled walker.) Occupational Therapy Problem List: Detail (1. Decreased endurance and UE functional endurance needed for safe and Ind ADLs/IADLs. 2. Decreased Ind with total body dressing. 3. Decreased Ind with transfers/mobility needed for Ind ADLs.) Occupational Therapy Goals: 1. Pt will demonstrate improved UE function and overall endurance needed for safe and Ind ADLs/IADLs. 2. Pt will be Ind with total body dressing. 3. Pt will be safe and Ind with transfers and all functional mobility needed for ADLs/IADLs. Prognosis: Good Occupational Therapy Plan: OT 2-4 days per week to address self cares, functional mobility, UE function and endurance needed for Ind with ADLs/IADLs.
[2017-08-20] MEDS: PREDNISONE 5 MG TAB PO SCH (08:44)
[2017-08-20] MEDS: ENOXAPARIN 40 MG/0.4 ML SYR SQ SCH (11:18)
[2017-08-20] MEDS: LOSARTAN POTASSIUM 25 MG TABLET PO SCH (11:19)
[2017-08-20] MEDS: GLIPIZIDE XL 5 MG TABLET PO SCH (11:19)
[2017-08-20] MEDS: ASPIRIN 81 MG TABEC PO SCH (11:19)
[2017-08-20] MEDS: ISOSORBIDE MONONITRATE 60 MG TAB.ER.24H PO SCH (11:20)
[2017-08-20] MEDS: FUROSEMIDE 20 MG TABLET PO SCH (11:20)
[2017-08-20] MEDS: DOCUSATE SODIUM 100 MG CAPSULE PO SCH (11:21)
[2017-08-20] MEDS: LIDOCAINE 5% PATCH TOP SCH (11:21)
[2017-08-20] MEDS: METOPROLOL SUCC 50 MG TABLET PO SCH (11:21)
[2017-08-20] MEDS: BUPROPION HCL 150 MG TAB.SR.12H PO SCH (11:21)
[2017-08-20] MEDS: VERAPAMIL 40 MG PO SCH ×2 (11:22→21:21)
--- NOTE | 2017-08-20 13:44 | Physical Therapy Tx Note ---
Physical Therapy Tx Note - Treatment Note Tolerated: Good Total Time Spent With Patient: 30 Physical Therapy Tx Note: Detail (The patient was up in chair when PT arrived. The patient ambulated 35 feet with 2 wheeled walker independently to stairway. The patient ascending and descending 3 steps with use of railing with supervision for safety. The patient ambulated with wheeled walker 60 feet x 2 independently. The patient completed LE exercises with use of red T-band: hip abduction, marching, LAQ, hamstring curls x 10 reps, hip adduction x 10 reps, heel and toe raises x 10 reps. Patient reported of LE fatigue following exercises. Patient was left in chair with call light in place.) Physical Therapy Problem List: Detail (1) Decreased LE strength 2) Decreased ability to complete sustained physical activity 3) Decreased balance in standing ) Physical Therapy Goals: 1) Increase LE strength 1/3 muscle grade to improve stability of gait. 2) Formally assess patient's balance using objective balance test. 3) The patient will ambulate on 3 steps with supervison. 4) The patient will be independent with all transfers. 5) The patient will ambulate with appropriate assistive device a distance of 150 feet plus independently. Physical Therapy Plan: PT M-F, 1 to 2 times a day for gait training, transfer training, LE strengthening exercises and balance exercises.
[2017-08-20] MEDS: ATORVASTATIN 20 MG TABLET PO SCH (21:21)
[2017-08-20] MEDS: REMOVE PATCH 1 EACH MISC TD SCH (21:22)
[2017-08-21] MEDS: CIPROFLOXACIN HCL 500 MG TABLET PO SCH ×2 (06:24→17:37)
[2017-08-21] MEDS: LEVOTHYROXINE SOD 112 MCG TAB PO SCH (06:24)
[2017-08-21] MEDS: PREDNISONE 5 MG TAB PO SCH (08:08)
[2017-08-21] MEDS: DOCUSATE SODIUM 100 MG CAPSULE PO SCH (09:14)
[2017-08-21] MEDS: LOSARTAN POTASSIUM 25 MG TABLET PO SCH (09:14)
[2017-08-21] MEDS: ASPIRIN 81 MG TABEC PO SCH (09:15)
[2017-08-21] MEDS: GLIPIZIDE XL 5 MG TABLET PO SCH (09:15)
[2017-08-21] MEDS: ISOSORBIDE MONONITRATE 60 MG TAB.ER.24H PO SCH (09:16)
[2017-08-21] MEDS: FUROSEMIDE 20 MG TABLET PO SCH (09:16)
[2017-08-21] MEDS: LIDOCAINE 5% PATCH TOP SCH (09:16)
[2017-08-21] MEDS: VERAPAMIL 40 MG PO SCH ×2 (09:17→21:10)
[2017-08-21] MEDS: ENOXAPARIN 40 MG/0.4 ML SYR SQ SCH (09:17)
[2017-08-21] MEDS: BUPROPION HCL 150 MG TAB.SR.12H PO SCH (09:18)
[2017-08-21] MEDS: METOPROLOL SUCC 50 MG TABLET PO SCH (09:18)
[2017-08-21] MEDS ORDERED: NYSTATIN 15 GM POWDER TP PRN (12:15)
[2017-08-21] MEDS: ATORVASTATIN 20 MG TABLET PO SCH (21:08)
[2017-08-21] MEDS: REMOVE PATCH 1 EACH MISC TD SCH (21:10)
[2017-08-22] MEDS: LEVOTHYROXINE SOD 112 MCG TAB PO SCH (06:15)
[2017-08-22] MEDS: CIPROFLOXACIN HCL 500 MG TABLET PO SCH ×2 (06:15→17:50)
[2017-08-22] MEDS: PREDNISONE 5 MG TAB PO SCH (08:46)
[2017-08-22] MEDS: DOCUSATE SODIUM 100 MG CAPSULE PO SCH (10:40)
[2017-08-22] MEDS: LOSARTAN POTASSIUM 25 MG TABLET PO SCH (10:41)
[2017-08-22] MEDS: GLIPIZIDE XL 5 MG TABLET PO SCH (10:41)
[2017-08-22] MEDS: ASPIRIN 81 MG TABEC PO SCH (10:41)
[2017-08-22] MEDS: FUROSEMIDE 20 MG TABLET PO SCH (10:42)
[2017-08-22] MEDS: LIDOCAINE 5% PATCH TOP SCH (10:42)
[2017-08-22] MEDS: ISOSORBIDE MONONITRATE 60 MG TAB.ER.24H PO SCH (10:42)
[2017-08-22] MEDS: METOPROLOL SUCC 50 MG TABLET PO SCH (10:43)
[2017-08-22] MEDS: ENOXAPARIN 40 MG/0.4 ML SYR SQ SCH (10:43)
[2017-08-22] MEDS: VERAPAMIL 40 MG PO SCH ×2 (10:43→21:37)
[2017-08-22] MEDS: BUPROPION HCL 150 MG TAB.SR.12H PO SCH (10:44)
[2017-08-22] MEDS: ATORVASTATIN 20 MG TABLET PO SCH (21:37)
[2017-08-22] MEDS: REMOVE PATCH 1 EACH MISC TD SCH (21:37)
[2017-08-23] MEDS: CIPROFLOXACIN HCL 500 MG TABLET PO SCH ×2 (06:13→18:31)
[2017-08-23] MEDS: LEVOTHYROXINE SOD 112 MCG TAB PO SCH (06:13)
[2017-08-23] MEDS: PREDNISONE 5 MG TAB PO SCH (09:22)
[2017-08-23] MEDS: GLIPIZIDE XL 5 MG TABLET PO SCH (09:23)
[2017-08-23] MEDS: BUPROPION HCL 150 MG TAB.SR.12H PO SCH (09:24)
[2017-08-23] MEDS: DOCUSATE SODIUM 100 MG CAPSULE PO SCH (09:24)
[2017-08-23] MEDS: ISOSORBIDE MONONITRATE 60 MG TAB.ER.24H PO SCH (09:25)
[2017-08-23] MEDS: LOSARTAN POTASSIUM 25 MG TABLET PO SCH (09:25)
[2017-08-23] MEDS: FUROSEMIDE 20 MG TABLET PO SCH (09:25)
[2017-08-23] MEDS: ASPIRIN 81 MG TABEC PO SCH (09:25)
[2017-08-23] MEDS: METOPROLOL SUCC 50 MG TABLET PO SCH (09:25)
[2017-08-23] MEDS: VERAPAMIL 40 MG PO SCH ×2 (09:26→21:35)
[2017-08-23] MEDS: LIDOCAINE 5% PATCH TOP SCH (09:26)
[2017-08-23] MEDS: ENOXAPARIN 40 MG/0.4 ML SYR SQ SCH (09:26)
--- NOTE | 2017-08-23 11:24 | Occupational Therapy Tx Note ---
Occupational Therapy Tx Note - Treatment Note Occupational Therapy Treatment Note: Detail (Pt reports she has some business to finish this am and would like to hold her OT appointment today.) Occupational Therapy Problem List: Detail (1. Decreased endurance and UE functional endurance needed for safe and Ind ADLs/IADLs. 2. Decreased Ind with total body dressing. 3. Decreased Ind with transfers/mobility needed for Ind ADLs.) Occupational Therapy Goals: 1. Pt will demonstrate improved UE function and overall endurance needed for safe and Ind ADLs/IADLs. 2. Pt will be Ind with total body dressing. 3. Pt will be safe and Ind with transfers and all functional mobility needed for ADLs/IADLs. Occupational Therapy Plan: OT 2-4 days per week to address self cares, functional mobility, UE function and endurance needed for Ind with ADLs/IADLs.
--- NOTE | 2017-08-23 11:55 | Physician Progress Note ---
Subjective - Date Date of Progress Note: 08/23/17 - Admitting Diagnosis Diagnosis: Deconditioning due to UTI/ Weakness - Subjective Nursing Care Plan Problem List Activity Intolerance (Swing Bed) Start: 08/15/17 16: 22 Freq: Status: Active Protocol: Created 08/15/17 16:22 [facility] (Rec: 08/15/17 16:22 [facility] [id number]) Altered Thought Process (Fall Risk) Start: 08/15/17 16: 28 Freq: Status: Complete Protocol: Created 08/15/17 16:28 [facility] (Rec: 08/15/17 16:28 [facility] [id number]) Edit Status 08/17/17 23:29 LPR (Rec: 08/17/17 23:29 LPR [id number]) Active=>Complete Impaired Mobility (Fall Risk) Start: 08/15/17 16: 28 Freq: Status: Active Protocol: Created 08/15/17 16:28 [facility] (Rec: 08/15/17 16:28 [facility] [id number]) Knowledge Deficit (Swing Bed) Start: 08/15/17 16: 22 Freq: Status: Active Protocol: Created 08/15/17 16:22 [facility] (Rec: 08/15/17 16:22 [facility] [id number]) Pain (Swing Bed) Start: 08/15/17 16: 22 Freq: Status: Active Protocol: Created 08/15/17 16:22 KM (Rec: 08/15/17 16:22 [facility] [id number]) Risk For Falls (Swing Bed) Start: 08/15/17 16: 22 Freq: Status: Active Protocol: Created 08/15/17 16:22 KM (Rec: 08/15/17 16:22 [facility] [id number]) Risk for Injury (Fall Risk) Start: 08/15/17 16: 28 Freq: Status: Complete Protocol: Created 08/15/17 16:28 [facility] (Rec: 08/15/17 16:28 [facility] [id number]) Edit Status 08/19/17 10:02 SAF (Rec: 08/19/17 10:02 SAF [id number]) Active=>Complete Subjective: 08/23/17- Patient states she is feeling better today. She says her weakness has improved signficantly. she was able to get up and walk the norman with her walker yesterday. She says that's the most her legs have been able to do in several weeks. She continues to workl with therapy with plan to transition home at some point this week. General - Cognitive Patterns Speech: Normal Thought Process: Intact Thought Content: Normal - Communication Select best description of speech pattern: Clear Speech Ability to express ideas and wants: Understood Understanding verbal content: Understands - Mood and Behavior Patterns Appearance: Well Groomed Mood: Normal Attitude: Cooperative Motor Activity: Calm Affect: Appropriate Hallucinations: Denies - Physical Functioning Activity Level: Up with assist x1 Turning: With partial assist ROM Ability: Moves all extremities Assistive Devices: 2 Wheel Walker, 4 Wheel Walker Ambulation Ability: Needs Assist Bed Mobility: Independent Transfer Ability: Independent Bathing Ability: Independent Personal Hygiene: Independent Dressing Ability: Independent Eating (Feeding) Ability: Independent Toileting Ability: Independent Administer Own Medication: Independent - Continence Bowel Pattern: Normal for Patient Bladder Pattern: Normal, Urgency Urinary Incontinence: Urge Meds/Allergies - Allergies Allergies Allergy/AdvReac Type Severity Reaction Status Date / Time No Known Drug Allergies Allergy Verified 08/12/17 21:16 - Active Medications Current Medications Acetaminophen (Tylenol 325mg) 650 mg PO Q6H PRN PRN Reason: PAIN/TEMP Last Admin: 08/18/17 20:31 Dose: 650 mg Aspirin (Ecotrin (Ec)) 81 mg PO DAILY [facility] Last Admin: 08/23/17 09:25 Dose: 81 mg Atorvastatin Calcium (Lipitor) 40 mg PO QHS [facility] Last Admin: 08/22/17 21:37 Dose: 40 mg Bupropion HCl (Wellbutrin Sr) 300 mg PO DAILY [facility] Last Admin: 08/23/17 09:24 Dose: 300 mg Ciprofloxacin (Cipro) 500 mg PO Q12H [facility] Stop: 08/26/17 06:01 Last Admin: 08/23/17 06:13 Dose: 500 mg Docusate Sodium (Colace) 100 mg PO DAILY [facility] Last Admin: 08/23/17 09:24 Dose: 100 mg Enoxaparin Sodium (Lovenox) 40 mg SQ DAILY [facility] Last Admin: 08/23/17 09:26 Dose: 40 mg Furosemide (Lasix) 20 mg PO QAM [facility] Last Admin: 08/23/17 09:25 Dose: 20 mg Glipizide (Glucotrol Xl) 10 mg PO DAILY [facility] Last Admin: 08/23/17 09:23 Dose: 10 mg Ibuprofen (Motrin 200mg) 200 mg PO Q4H PRN PRN Reason: Pain - General Isosorbide Mononitrate (Imdur) 60 mg PO DAILY [facility] Last Admin: 08/23/17 09:25 Dose: 60 mg Levothyroxine Sodium (Synthroid) 112 mcg PO DAILYTHY [facility] Last Admin: 08/23/17 06:13 Dose: 112 mcg Lidocaine (Lidoderm) 1 each TOP DAILY [facility] Last Admin: 08/23/17 09:26 Dose: Not Given Losartan Potassium (Cozaar) 50 mg PO DAILY [facility] Last Admin: 08/23/17 09:25 Dose: 50 mg Magnesium Hydroxide (Milk Of Magnesium) 30 ml PO DAILY PRN PRN Reason: INDIGESTION Last Admin: 08/20/17 15:22 Dose: 30 ml Metoprolol Succinate (Toprol Xl) 100 mg PO DAILY [facility] Last Admin: 08/23/17 09:25 Dose: 100 mg Miscellaneous (Remove Patch) 1 each TD QHS [facility] Last Admin: 08/22/17 21:37 Dose: Not Given Nystatin (Nystop) 15 gm TP TID PRN PRN Reason: RASH Patient Own Med: (Verapamil 40mg) 1 each PO BID [facility] Last Admin: 08/23/17 09:26 Dose: 1 each Prednisone (Prednisone 5mg) 5 mg PO DAILYWM [facility] Last Admin: 08/23/17 09:22 Dose: 5 mg Tramadol HCl (Ultram) 50 mg PO Q8H PRN PRN Reason: Pain - Severe (8-10) Objective - Vital Signs Vital Signs: Vital Signs - Last 24 Hrs Temp Pulse Resp BP Pulse Ox 08/23/17 08:00 97.2 F L 58 L 16 190/90 95 08/22/17 19:53 97.5 F L 66 17 152/77 98 - General General Appearance: Alert, Oriented x3, Cooperative, No acute distress - Head Head exam: Normal inspection - Eye Eye exam: Normal appearance, PERRL Pupils: Normal accommodation - ENT ENT exam: Normal exam, Mucous membranes moist, Normal external ear exam, Normal orophraynx, TM's normal bilaterally Ear exam: Normal external inspection. negative: External canal tenderness Nasal Exam: Normal inspection. negative: Discharge, Sinus tenderness Mouth exam: Normal external inspection, Tongue normal Teeth exam: Normal inspection. negative: Dental caries Throat exam: Normal inspection. negative: Tonsillar erythema, Tonsillar exudate - Neck Neck exam: Normal inspection, Full ROM. negative: Tenderness - Respiratory Respiratory exam: Normal lung sounds bilaterally. negative: Respiratory distress - Cardiovascular Cardiovascular Exam: Regular rate, Normal rhythm, Normal heart sounds - GI/Abdominal GI/Abdominal exam: Soft, Normal bowel sounds. negative: Tenderness - Rectal Rectal exam: Deferred - exam: Deferred - Extremities Extremities exam: Normal inspection, Full ROM, Normal capillary refill, Other ( weakness and walks with a walker). negative: Tenderness - Back Back exam: Reports: Normal inspection, Full ROM. Denies: Muscle spasm, Rash noted, Tenderness - Neurological Neurological exam: Alert, Normal gait, Oriented X3, Reflexes normal - Psychiatric Psychiatric exam: Normal affect, Normal mood - Skin Skin exam: Dry, Intact, Normal color, Warm H&P Results - Labs Labs Last 24 Hours: Laboratory Results - last 24 hr 08/23/17 07:30 POC Glucose 103 Discharge Potential - Discharge Needs Community Services Used Prior to Admission: None Patient Discharge Plan Description: Return Home Community Services Needed at Discharge: Occupational Therapy, Physical Therapy Discharge Needs Comment: interested in seeing a counselor. declinging home care services at this time, but would like to do pt/ot outpatient if insurance will cover it Plan - Swing Bed Certification Initial Certification Due: 08/15/17 14 Day Re-Cert Due: 08/29/17 44 Day Re-Cert Due: 09/28/17 74 Day Re-Cert Due: 10/28/17 - Detailed Diagnosis and Plan (1) Weakness Current Visit: No Status: Acute Base Code: R53.1 - WEAKNESS Comment: : improving. can currently ambulate short distances with walker unassisted. lives alone. son is renovating bathroom to be more accessable for her. -continue to work [facility] pt/ot - Social work will set up home pt/ot upon discharge. Plan is to dc home with therapy this week, likely friday 08/25 (2) UTI (urinary tract infection) Current Visit: No Status: Acute Base Code: N39.0 - URINARY TRACT INFECTION, SITE NOT SPECIFIED Comment: 08/23/17: UA showed positive leukocyte esterase, WBC normal, afebrile, urine culture pending. Likely contributing to generalized weakness. - Continue Cipro through 08/26/17 -established with Dr. Bowles. Would like daughter to set up follow up wtih him. Gave patient his [facility] clinic number to call and schedule outpt follow up for frequent UTI (3) Hip pain, acute Current Visit: No Status: Acute Qualifiers: Laterality: right Qualified Code(s): M25.551 - Pain in right hip Base Code: M25.559 - PAIN IN UNSPECIFIED HIP Comment: 08/23/17: improving. Right hip x-ray showed degenerative changes with no acute process. 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 Patient reports history of hip pain for several years, does not see orthopedics, treats with Tylenol at home. - Continue tylenol prn and may alternate with low dose ibuprofen -continue pt/ot (4) Full code status Current Visit: No Status: Acute Base Code: Z78.9 - OTHER SPECIFIED HEALTH STATUS Comment: 08/23/17: Patient is full code
--- NOTE | 2017-08-23 14:50 | Physical Therapy Tx Note ---
Physical Therapy Tx Note - Treatment Note Tolerated: Good Total Time Spent With Patient: 40 Physical Therapy Tx Note: Detail (The patient was in the process of getting dressed when PT arrived. The patient required assistance with hooking bra. The patient was independent putting on socks, shoes and her shirt. The patient ambulated with 4 wheeled walker a distance of 48 feet x 1 to inside chapel (on carpet). The patient then ambulated to surgical waiting room then back to room, a distance of 100 feet with 2 rest periods. The patient exhibited unsteadiness with ambulation with 4 wheeled walker. The patient experienced shortness of breath with ambulation. The patient completed LE exercises seated including: with red T-band hip abduction and hamstring curls x 15 reps, ankle pumps, LAQ, hip marching and gluteal squeezes all x 10 reps. The patient was fatigued following treatment. Use of two wheeled walker was recommended over 4 wheeled walker.) Physical Therapy Problem List: Detail (1) Decreased LE strength 2) Decreased ability to complete sustained physical activity 3) Decreased balance in standing ) Physical Therapy Goals: 1) Increase LE strength 1/3 muscle grade to improve stability of gait. 2) Formally assess patient's balance using objective balance test. 3) The patient will ambulate on 3 steps with supervison. 4) The patient will be independent with all transfers. 5) The patient will ambulate with appropriate assistive device a distance of 150 feet plus independently. Physical Therapy Plan: PT M-F, 1 to 2 times a day for gait training, transfer training, LE strengthening exercises and balance exercises.
[2017-08-23] MEDS: ATORVASTATIN 20 MG TABLET PO SCH (21:34)
[2017-08-23] MEDS: REMOVE PATCH 1 EACH MISC TD SCH (21:38)
[2017-08-24] MEDS: LEVOTHYROXINE SOD 112 MCG TAB PO SCH (06:33)
[2017-08-24] MEDS: CIPROFLOXACIN HCL 500 MG TABLET PO SCH ×2 (06:33→18:04)
[2017-08-24] MEDS: PREDNISONE 5 MG TAB PO SCH (08:17)
[2017-08-24] MEDS: LOSARTAN POTASSIUM 25 MG TABLET PO SCH (10:02)
[2017-08-24] MEDS: DOCUSATE SODIUM 100 MG CAPSULE PO SCH (10:02)
[2017-08-24] MEDS: ASPIRIN 81 MG TABEC PO SCH (10:02)
[2017-08-24] MEDS: ISOSORBIDE MONONITRATE 60 MG TAB.ER.24H PO SCH (10:02)
[2017-08-24] MEDS: GLIPIZIDE XL 5 MG TABLET PO SCH (10:02)
[2017-08-24] MEDS: BUPROPION HCL 150 MG TAB.SR.12H PO SCH (10:02)
[2017-08-24] MEDS: FUROSEMIDE 20 MG TABLET PO SCH (10:02)
[2017-08-24] MEDS: ENOXAPARIN 40 MG/0.4 ML SYR SQ SCH (10:03)
[2017-08-24] MEDS: METOPROLOL SUCC 50 MG TABLET PO SCH (10:03)
[2017-08-24] MEDS: VERAPAMIL 40 MG PO SCH ×2 (10:06→21:15)
[2017-08-24] MEDS: LIDOCAINE 5% PATCH TOP SCH (10:07)
--- NOTE | 2017-08-24 11:19 | Occupational Therapy Tx Note ---
Occupational Therapy Tx Note - Treatment Note Tolerated: Good Total Time Spent With Patient: 45 (ther ex, gait) Occupational Therapy Treatment Note: Detail (S: Pt up in chair, reports she was able to shower Indly but still has trouble hooking bra due to decreased UE strength. O: Sit to stand and amb to rehab gym with 2 wheeled walker and 1 short, seated rest break. Pt reports arm fatigue when using walker and was instructed in proper walker use. Pt provided with yellow theraband and written HEP for UE exercises as follows: shoulder flexion, shoulder extension, horiz. abduction, horiz. adduction, elbow flexion and elbow extension. She completed 10 reps of each exercise with simon UEs. Pt educated and verbalizes learning of UE coordination exercises to improve fine motor coor. Pt amb back to room with 2 wheeled walker Indly, without any rest breaks. A: Pt educated and demo's learning of theraband UE HEP. Significant improvement with endurance and functional mobility.) Occupational Therapy Problem List: Detail (1. Decreased endurance and UE functional endurance needed for safe and Ind ADLs/IADLs. 2. Decreased Ind with total body dressing. 3. Decreased Ind with transfers/mobility needed for Ind ADLs.) Occupational Therapy Goals: 1. Pt will demonstrate improved UE function and overall endurance needed for safe and Ind ADLs/IADLs. 2. Pt will be Ind with total body dressing. 3. Pt will be safe and Ind with transfers and all functional mobility needed for ADLs/IADLs. Prognosis: Good Occupational Therapy Plan: OT 2-4 days per week to address self cares, functional mobility, UE function and endurance needed for Ind with ADLs/IADLs.
--- NOTE | 2017-08-24 13:43 | Physical Therapy Tx Note ---
Physical Therapy Tx Note - Treatment Note Tolerated: Good Total Time Spent With Patient: 30 Physical Therapy Tx Note: Detail (The patient refused to walk. " I walked this morning. The patient's LE strength was retested : R hamstrings 4-/5, L 4+/5, hip flexors R 4-/5, L 4/5, hip abductors and adductors 4/5, Quadriceps B 4+/5. The patient's balance was retested and remains 34/56 using the Kendrick Balance Scale. The patient completed LE strengthening exercises including: ankle pumps , gluteal sets, hip adductor squeezes, marching, red t-band hip abduction, LAQ, hamstring curls all x 10 reps. The patient has had some improvement with LE strength.) Physical Therapy Problem List: Detail (1) Decreased LE strength 2) Decreased ability to complete sustained physical activity 3) Decreased balance in standing ) Physical Therapy Goals: 1) Increase LE strength 1/3 muscle grade to improve stability of gait. 2) Formally assess patient's balance using objective balance test. 3) The patient will ambulate on 3 steps with supervison. 4) The patient will be independent with all transfers. 5) The patient will ambulate with appropriate assistive device a distance of 150 feet plus independently. Physical Therapy Plan: PT M-F, 1 to 2 times a day for gait training, transfer training, LE strengthening exercises and balance exercises.
[2017-08-24] MEDS: ATORVASTATIN 20 MG TABLET PO SCH (21:14)
[2017-08-24] MEDS: REMOVE PATCH 1 EACH MISC TD SCH (21:16)
[2017-08-25] MEDS: CIPROFLOXACIN HCL 500 MG TABLET PO SCH (06:09)
[2017-08-25] MEDS: LEVOTHYROXINE SOD 112 MCG TAB PO SCH (06:09)
[2017-08-25] MEDS: PREDNISONE 5 MG TAB PO SCH (08:17)
[2017-08-25] MEDS: LOSARTAN POTASSIUM 25 MG TABLET PO SCH (09:20)
[2017-08-25] MEDS: DOCUSATE SODIUM 100 MG CAPSULE PO SCH (09:20)
[2017-08-25] MEDS: ISOSORBIDE MONONITRATE 60 MG TAB.ER.24H PO SCH (09:21)
[2017-08-25] MEDS: FUROSEMIDE 20 MG TABLET PO SCH (09:21)
[2017-08-25] MEDS: METOPROLOL SUCC 50 MG TABLET PO SCH (09:21)
[2017-08-25] MEDS: BUPROPION HCL 150 MG TAB.SR.12H PO SCH (09:21)
[2017-08-25] MEDS: ASPIRIN 81 MG TABEC PO SCH (09:21)
[2017-08-25] MEDS: GLIPIZIDE XL 5 MG TABLET PO SCH (09:21)
[2017-08-25] MEDS: LIDOCAINE 5% PATCH TOP SCH (09:22)
[2017-08-25] MEDS: ENOXAPARIN 40 MG/0.4 ML SYR SQ SCH (09:22)
[2017-08-25] MEDS: VERAPAMIL 40 MG PO SCH (09:24)
--- NOTE | 2017-08-25 11:38 | Occupational Therapy Tx Note ---
Occupational Therapy Tx Note - Treatment Note Tolerated: Good Total Time Spent With Patient: 40 (ther ex) Occupational Therapy Treatment Note: Detail (S: Pt resting in bed. O: Supine to sit and transferred to wheelchair Indly. Transported to rehab gym via wheelchair. Pt completed simon UE strengthening and coordination activities including resisted clothespins, red and green theraputty, luque pepper picker and hand helper with 40# resistance x 15 reps each hand. Pt was provided with green putty and review of HEP, she demonstrated learning. Reviewed HEP for coordination, she verbalized understanding. Pt reports she has had trouble with hooking bra for a while and she will not wear one at home if she is unable to fasten it. Reviewed modified techniques and she prefers to hook in the back. Pt transported back to room via wheelchair and transferred to chair Indly. A: Pt is Ind with UE HEP) Occupational Therapy Problem List: Detail (1. Decreased endurance and UE functional endurance needed for safe and Ind ADLs/IADLs. 2. Decreased Ind with total body dressing. 3. Decreased Ind with transfers/mobility needed for Ind ADLs.) Occupational Therapy Goals: 1. Pt will demonstrate improved UE function and overall endurance needed for safe and Ind ADLs/IADLs. 2. Pt will be Ind with total body dressing. 3. Pt will be safe and Ind with transfers and all functional mobility needed for ADLs/IADLs. Prognosis: Good Occupational Therapy Plan: Pt is discharging home today, she is not interested in continuing therapy at home.
--- NOTE | 2017-08-25 12:08 | Discharge Summary ---
Providers Discharge Summary Date: 08/25/17 Date of admission: 08/15/17 16:20 Attending physician: Pancho Dyer Primary care physician: JAREK NGUYEN D.O. Physical Exam - Vital Signs Vital Signs: Vital Signs - Last 24 Hrs Temp Pulse Resp BP BP Pulse Ox 08/25/17 07:44 98.4 F 61 18 186/82 97 08/24/17 20:00 98.2 F 60 16 142/78 96 - General General Appearance: Alert, Oriented x3, Cooperative, No acute distress - Head Head exam: Normal inspection - Eye Eye exam: Normal appearance, PERRL Pupils: Normal accommodation - ENT ENT exam: Normal exam, Mucous membranes moist, Normal external ear exam, Normal orophraynx, TM's normal bilaterally Ear exam: Normal external inspection. negative: External canal tenderness Nasal Exam: Normal inspection. negative: Discharge, Sinus tenderness Mouth exam: Normal external inspection, Tongue normal Teeth exam: Normal inspection. negative: Dental caries Throat exam: Normal inspection. negative: Tonsillar erythema, Tonsillar exudate - Neck Neck exam: Normal inspection, Full ROM. negative: Tenderness - Respiratory Respiratory exam: Normal lung sounds bilaterally. negative: Respiratory distress - Cardiovascular Cardiovascular Exam: Regular rate, Normal rhythm, Normal heart sounds Peripheral Pulses: 3+: Radial (R), Radial (L), Dorsalis Pedis (R), Dorsalis Pedis (L) - GI/Abdominal GI/Abdominal exam: Soft, Normal bowel sounds. negative: Tenderness - Rectal Rectal exam: Deferred - exam: Deferred - Extremities Extremities exam: Normal inspection, Full ROM, Normal capillary refill, Other ( weakness and walks with a walker). negative: Tenderness - Back Back exam: Reports: Normal inspection, Full ROM. Denies: Muscle spasm, Rash noted, Tenderness - Neurological Neurological exam: Alert, Normal gait, Oriented X3, Reflexes normal - Psychiatric Psychiatric exam: Normal affect, Normal mood - Skin Skin exam: Dry, Intact, Normal color, Warm Hospitalization - Hospitalization Admission Diagnosis: Deconditioning due to UTI and Weakness - Problem List (1) Weakness Current Visit: No Status: Acute Base Code: R53.1 - WEAKNESS Comment: : improving. can currently ambulate short distances with walker unassisted. lives alone. son is renovating bathroom to be more accessable for her. -continue to work [facility] pt/ot - Social work will set up home pt/ot upon discharge. Plan is to dc home with therapy this week, likely friday 08/25 (2) UTI (urinary tract infection) Current Visit: No Status: Acute Base Code: N39.0 - URINARY TRACT INFECTION, SITE NOT SPECIFIED Comment: 08/23/17: UA showed positive leukocyte esterase, WBC normal, afebrile, urine culture pending. Likely contributing to generalized weakness. - Continue Cipro today. Patient is to follow up with Dr. Casanova regarding a recurrent UTI. Clinic schedule and and number has been provided to patient's daughter. 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 Patient reports history of hip pain for several years, does not see orthopedics, treats with Tylenol at home. - Continue tylenol prn and may alternate with low dose ibuprofen -continue pt/ot (5) Full code status Current Visit: No Status: Acute Base Code: Z78.9 - OTHER SPECIFIED HEALTH STATUS Comment: FULL CODE - Hospitalization Course Disposition: Home, Self-Care Hospital Course: Mrs. Dover is a 87 y/o female admitted to swing bed after having weakness and physical de-conditioning. 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 The patient's physical condition has improved with daily physical therapy and is independent of her ADLs/IADLs. The patient lives alone but is refusing any home care at this time. On examination this afternoon, she is afebrile, and vitals are stable. Abnormal Labs: Abnormal Lab Results 08/15/17 08/16/17 08/17/17 Range/Units 17:00 17:00 11:44 POC Glucose 265 H 248 H 306 H (70-110) mg/dL 08/17/17 08/18/17 08/18/17 Range/Units 16:45 07:40 17:00 POC Glucose 272 H 123 H 183 H (70-110) mg/dL 08/18/17 08/19/17 08/19/17 Range/Units 22:00 07:38 11:30 POC Glucose 219 H 136 H 250 H (70-110) mg/dL 08/19/17 08/20/17 08/20/17 Range/Units 17:33 07:30 11:50 POC Glucose 163 H 124 H 194 H (70-110) mg/dL 08/22/17 Range/Units 07:45 POC Glucose 116 H (70-110) mg/dL Condition at Discharge: (2) Stable Discharge Diagnosis: Deconditioning, UTI Discharge Medications - Discharge Medications Prescriptions: Acetaminophen [Tylenol 325Mg] 650 mg PO Q6H PRN #20 tablet PRN Reason: Pain/Temp Furosemide [Lasix] 20 mg PO QAM #10 tablet Glipizide [Glipizide ER] 10 mg PO DAILY #10 tab.er.24 Losartan Potassium 50 mg PO DAILY #10 tablet Metoprolol Succinate [Toprol Xl] 100 mg PO DAILY #10 tab.er.24h Prednisone 5 mg PO DAILY #10 tablet Home Medications: Ambulatory Orders Aspirin [Aspir-Low] 81 mg PO DAILY 08/12/17 [Last Taken Unknown] Atorvastatin Calcium [Lipitor] 40 mg PO QHS 08/12/17 [Last Taken Unknown] Bupropion HCl [Bupropion Xl] 150 mg PO DAILY 08/12/17 [Last Taken Unknown] Levothyroxine Sodium [Synthroid] 112 mcg PO DAILY 08/12/17 [Last Taken Unknown] Verapamil HCl 40 mg PO BID 08/12/17 [Last Taken Unknown] Acetaminophen [Tylenol 325Mg] 650 mg PO Q6H PRN #20 tablet 08/25/17 [Last Taken Unknown] Aspirin Enteric-Coated [Ecotrin (EC)] 81 mg PO DAILY tabec 08/25/17 [Last Taken Unknown] Bupropion HCl [Wellbutrin Sr] 300 mg PO DAILY tab.sr.12h 08/25/17 [Last Taken Unknown] Docusate Sodium [Colace] 100 mg PO DAILY cap 08/25/17 [Last Taken Unknown] Furosemide [Lasix] 20 mg PO QAM tablet 08/25/17 [Last Taken Unknown] Furosemide [Lasix] 20 mg PO QAM #10 tablet 08/25/17 [Last Taken Unknown] Glipizide [Glipizide ER] 10 mg PO DAILY #10 tab.er.24 08/25/17 [Last Taken Unknown] Levothyroxine Sodium [Synthroid] 112 mcg PO DAILYTHY tablet 08/25/17 [Last Taken Unknown] Losartan Potassium 50 mg PO DAILY #10 tablet 08/25/17 [Last Taken Unknown] Losartan Potassium [Cozaar] 50 mg PO DAILY tablet 08/25/17 [Last Taken Unknown] Metoprolol Succinate [Toprol Xl] 100 mg PO DAILY #10 tab.er.24h 08/25/17 [Last Taken Unknown] Nystatin [Nystop] 15 gm TP TID PRN powder 08/25/17 [Last Taken Unknown] Prednisone 5 mg PO DAILY #10 tablet 08/25/17 [Last Taken Unknown] Prednisone [Prednisone 5Mg] 5 mg PO DAILYWM tab 08/25/17 [Last Taken Unknown] Tramadol HCl [Ultram] 50 mg PO Q8H PRN tablet 08/25/17 [Last Taken Unknown] Discharge Plan - Discharge Instructions Activity at Discharge: Increase Activity as Tolerated Diet at Discharge: Regular Diet, Low Fat, Low Cholesterol, Low Salt Diet Additional Instructions: Some medications refilled to bridge the patient for 10 days until seen by PCP. Would advise taking Losartan in in the evening due to elevated morning blood pressures. IMPORTANT: Patient needs to follow up with her PCP within 1 week of discharge. Quality Measures - Quality Measures Quality Measures: Advance Directives, Documentation of Current Medications in Medical Record, Elder Maltreatment Screen and Follow-Up Plan, Screening for High Blood Pressure and F/U Documented - Current Medications Quality Measure: Measure #130: Documentation of Current Medications Documentation of Current Medications: <Current Medications Documented/Reviewed> [G8427] - Blood Pressure Screening Quality Measure: Screening for High Blood Pressure and Follow-Up Documented Does Patient Have Any of the Following: Active Dx of HTN Blood Pressure Classification: Hypertensive Reading Systolic Measurement: 190 Diastolic Measurement: 90 Screening for High Blood Pressure: Patient Exclusion, Hx of HTN [G9744] - Advance Directives Quality Measure: Measure #47: Care Plan Advance Directives Established: No Advance Directives Information Provided To Patient: Declined Advance Directives on File: No Living Will: Yes Power of Can Conveyor Feeder: No Advance Care Planning: <Care Plan/Decision Maker Not Decided; Discussed & Documented> [9844F] - Elder Abuse Suspicion Index Screening: Elder Abuse Suspicion Index Screening Rely on people for bathing, dressing, shopping, banking, etc: No Prevented from getting food, clothes, medication, etc: No Made to feel shamed or threatened by someone: No Forced to sign papers or use money against will: No Feel afraid, touched in ways not wanted or hurt physically: No Poor eye contact, withdrawn, malnourished, cuts or bruises: No Screening Result: Negative result EASI Reference Information: Jessica MEJIA, Melissa C, Nathalie D, Zaheer Teran.Development and validation of a tool to assist physicians identification of elder abuse: The Elder Abuse Suspicion Index (EASI ). Journal of Elder Abuse and Neglect, 2008; 20 (3): 276-300. - Elder Maltreatment Screen Quality Measures: Elder Maltreatment Screen and Follow-Up Plan Elder Maltreatment Screen: <Negative, No Follow-Up Plan Required> [G1952]
--- NOTE | 2017-08-25 14:28 | Rehab Discharge Summary ---
Patient Information - Patient Information Diagnosis: Deconditioning due to UTI/weakness Ordered Treatment: OT Evaluate and Treat History: Detail (The patient was previously seen as an inpatient and is now transferred to Swing Bed for Rehabilitation.) Past Medical/Surgical Hx: PAST MEDICAL/SURGICAL HISTORY Past Surgical History Hysterectomy Heart Stents X 5 Cholecystectomy Appendectomy T&A PMH - Respiratory Hx Respiratory Disorders Yes Hx Asthma No Hx Bronchitis No Hx Chronic Obstructive No Pulmonary Disease (COPD) Hx Dyspnea Yes Hx Pneumonia Yes: childhood Hx Pulmonary Embolism Yes: 2017 Hx Sleep Apnea No Hx Tuberculosis No Hx of CPAP No PMH - Cardiovascular Hx Cardiovascular Disorders Yes Hx Abnormal EKG No Hx Cardiac Catheterization Yes Hx Chest Pain Yes Hx Congestive Heart Failure No Hx Deep Vein Thrombosis No Hx Edema No Hx Heart Attack Yes: "Around 2006" Hx Hypertension Yes Hx Hypotension No Hx Irregular Heartbeat Yes: with exertion Hx Palpitations No Hx Pacemaker/Defibrillator No Hx Vascular Disease No Hx Transient Ischemic Attacks No (TIA) PMH - Neuro Hx Neurological Disorders No Hx Brain Tumor Yes Hx Cerebrovascular Accident No Hx Dementia No Hx Dizziness Yes Hx Headaches No Hx Neuropathy No Hx Parkinson's Disease No Hx Seizures No Hx Speech Problem No Hx Syncope No Hx Transient Ischemic Attacks No (TIA) PMH - GI Hx Gastrointestinal Disorders Yes Hx Abdominal Pain No Hx Celiac Disease No Hx Crohn's Disease No Hx Diverticulitis No Hx Gastrointestinal Bleed No Hx Gastroesophageal Reflux No Hx Hepatitis/Jaundice No Hx Hiatal Hernia Yes Hx Irritable Bowel No Hx Liver Disease No Hx Nausea/Vomiting No Hx Obstructive Bowel No Hx Pancreatitis No Hx Rectal Bleeding No Hx Ulcer No Hx Weight Loss/Weight Gain No PMH - Hx Genitourinary Disorders Yes Hx Bladder Problem Yes Hx Dialysis No Hx Kidney Stones No Hx Renal Disease No Hx Urinary Tract Infection Yes: hx PMH - Endocrine Hx Endocrine Disorders Yes Hx Diabetes Yes Hx Thyroid Disease Yes PMH - Musculoskeletal Hx Musculoskeletal Disorders Yes Hx Arthritis Yes Hx Back Injury No Hx Fibromyalgia No Hx Gout No Hx Musculoskeletal Disease No Hx Osteoporosis No PMH - Psych Hx Psychiatric Problems Yes Hx Anxiety No Hx Behavior Problems No Hx Depression Yes Hx Emotional Abuse No Hx Sexual Abuse No Hx Suicide Attempt No PMH - Hematology/Oncology Hx Hematology/Oncology Yes Disorders Hx Anemia No Hx Blood Disorders No Hx Bruising No Hx Cancer Yes: Breast Hx Chemotherapy No Hx Radiation Therapy Yes: 2007 Hx Clotting Problems No Hx Sickle Cell Disease No Hx Unexplained Bleeding No Hx Blood Transfusion Reaction No Premorbid Status: Detail (The patient lives alone in a one story house with a basement, she primarily stays on the main floor. Her home has 3 steps and one handrailing at the entrance. Her bathroom is equipped with a tub/shower combination with 1 grab bar outside of the shower and she uses the soap dish as a grab bar. She has a standard toilet without grab bars. She states she usually stands to shower. She reports she was independent with all ADL's, meal prep, laundry, home management and yard work. She had a four wheeled walker and lift chair. The patient had been sleeping in a new lift chair/recliner and not her bed. The patient stated that she has difficulty with sit to and from stand transfer from lower surfaces including her toilet at times.) Social History: Detail (Supportive son and daughter live close by.) Precautions: [place], Fall Subjective Information - Subjective Information Per Patient Objective Data - Pain Pain Present: No - Mental Status Patient Orientation: Oriented x3 - Visual Perception Appears within normal limits for therapeutic activities (Pt wears glasses at all times.) - ROM Within normal limits (Adama UE AROM grossly WNL) - Strength/Tone Within normal limits (Adama UE strength grossly 4 to 4+/5 with improved endurance with repetitive overhead activities.) - Coordination Appears within normal limits for therapeutic activities (Pt has some difficulty fastening bra although this has been an ongoing issue.) - Bed Mobility Independent - Transfers Independent - Balance Balance Sitting: Good Balance Standing: Good - Sensation Intact - Gait Detail (Pt ambulating household distances with 2 wheeled walker Indly.) - ADL's/IADL's Detail (Pt is safe and Ind with showering, grooming/hygiene and total body dressing with the exception of donning bra.) Therapy Assessment - Therapy Assessment Detail (Pt is safe and Ind with all ADLs and functional mobility needed to return home. She has a comprehensive UE HEP and has demonstrated learning of all exercises.) Problem List - Problem List Physical Therapy Problem List: Detail (1) Decreased LE strength 2) Decreased ability to complete sustained physical activity 3) Decreased balance in standing ) Occupational Therapy Problem List: Detail (1. Decreased endurance and UE functional endurance needed for safe and Ind ADLs/IADLs. 2. Decreased Ind with total body dressing. 3. Decreased Ind with transfers/mobility needed for Ind ADLs.) Goals - Goals Physical Therapy Goals: 1) Increase LE strength 1/3 muscle grade to improve stability of gait. 2) Formally assess patient's balance using objective balance test. 3) The patient will ambulate on 3 steps with supervison. 4) The patient will be independent with all transfers. 5) The patient will ambulate with appropriate assistive device a distance of 150 feet plus independently. Occupational Therapy Goals: Goals Met: 1. Pt will demonstrate improved UE function and overall endurance needed for safe and Ind ADLs/IADLs. 2. Pt will be Ind with total body dressing. 3. Pt will be safe and Ind with transfers and all functional mobility needed for ADLs/IADLs. Prognosis - Prognosis Good Plan - Plan Physical Therapy Plan: PT M-F, 1 to 2 times a day for gait training, transfer training, LE strengthening exercises and balance exercises. Occupational Therapy Plan: Pt is discharging home today, she is not interested in continuing therapy at home.
--- NOTE | 2017-08-25 14:51 | Physical Therapy Tx Note ---
Physical Therapy Tx Note - Treatment Note Tolerated: Good Total Time Spent With Patient: 15 Physical Therapy Tx Note: Detail (The patient was sitting up in chair when PT arrived. The patient's home exercise program was reviewed and included: with red theraband: LAQ, hamstring curls, hip abduction, ankle pumps, hip adduction, marching all x 10 reps. The patient was issued written instructions of all exercises and completed all exercises correctly.) Physical Therapy Problem List: Detail (1) Decreased LE strength 2) Decreased ability to complete sustained physical activity 3) Decreased balance in standing ) Physical Therapy Goals: 1) Increase LE strength 1/3 muscle grade to improve stability of gait. 2) Formally assess patient's balance using objective balance test. 3) The patient will ambulate on 3 steps with supervison. 4) The patient will be independent with all transfers. 5) The patient will ambulate with appropriate assistive device a distance of 150 feet plus independently. Physical Therapy Plan: PT M-F, 1 to 2 times a day for gait training, transfer training, LE strengthening exercises and balance exercises.
--- NOTE | 2017-08-27 10:13 | Rehab Discharge Summary ---
Patient Information - Patient Information Diagnosis: Deconditioning due to UTI/weakness Ordered Treatment: PT Evaluate and Treat History: Detail (The patient was previously seen as an inpatient and is now transferred to Swing Bed for Rehabilitation.) Past Medical/Surgical Hx: PAST MEDICAL/SURGICAL HISTORY Past Surgical History Hysterectomy Heart Stents X 5 Cholecystectomy Appendectomy T&A PMH - Respiratory Hx Respiratory Disorders Yes Hx Asthma No Hx Bronchitis No Hx Chronic Obstructive No Pulmonary Disease (COPD) Hx Dyspnea Yes Hx Pneumonia Yes: childhood Hx Pulmonary Embolism Yes: 2017 Hx Sleep Apnea No Hx Tuberculosis No Hx of CPAP No PMH - Cardiovascular Hx Cardiovascular Disorders Yes Hx Abnormal EKG No Hx Cardiac Catheterization Yes Hx Chest Pain Yes Hx Congestive Heart Failure No Hx Deep Vein Thrombosis No Hx Edema No Hx Heart Attack Yes: "Around 2006" Hx Hypertension Yes Hx Hypotension No Hx Irregular Heartbeat Yes: with exertion Hx Palpitations No Hx Pacemaker/Defibrillator No Hx Vascular Disease No Hx Transient Ischemic Attacks No (TIA) PMH - Neuro Hx Neurological Disorders No Hx Brain Tumor Yes Hx Cerebrovascular Accident No Hx Dementia No Hx Dizziness Yes Hx Headaches No Hx Neuropathy No Hx Parkinson's Disease No Hx Seizures No Hx Speech Problem No Hx Syncope No Hx Transient Ischemic Attacks No (TIA) PMH - GI Hx Gastrointestinal Disorders Yes Hx Abdominal Pain No Hx Celiac Disease No Hx Crohn's Disease No Hx Diverticulitis No Hx Gastrointestinal Bleed No Hx Gastroesophageal Reflux No Hx Hepatitis/Jaundice No Hx Hiatal Hernia Yes Hx Irritable Bowel No Hx Liver Disease No Hx Nausea/Vomiting No Hx Obstructive Bowel No Hx Pancreatitis No Hx Rectal Bleeding No Hx Ulcer No Hx Weight Loss/Weight Gain No PMH - Hx Genitourinary Disorders Yes Hx Bladder Problem Yes Hx Dialysis No Hx Kidney Stones No Hx Renal Disease No Hx Urinary Tract Infection Yes: hx PMH - Endocrine Hx Endocrine Disorders Yes Hx Diabetes Yes Hx Thyroid Disease Yes PMH - Musculoskeletal Hx Musculoskeletal Disorders Yes Hx Arthritis Yes Hx Back Injury No Hx Fibromyalgia No Hx Gout No Hx Musculoskeletal Disease No Hx Osteoporosis No PMH - Psych Hx Psychiatric Problems Yes Hx Anxiety No Hx Behavior Problems No Hx Depression Yes Hx Emotional Abuse No Hx Sexual Abuse No Hx Suicide Attempt No PMH - Hematology/Oncology Hx Hematology/Oncology Yes Disorders Hx Anemia No Hx Blood Disorders No Hx Bruising No Hx Cancer Yes: Breast Hx Chemotherapy No Hx Radiation Therapy Yes: 2007 Hx Clotting Problems No Hx Sickle Cell Disease No Hx Unexplained Bleeding No Hx Blood Transfusion Reaction No Premorbid Status: Detail (The patient lives alone in a one story house with a basement, she primarily stays on the main floor. Her home has 3 steps and one handrailing at the entrance. Her bathroom is equipped with a tub/shower combination with 1 grab bar outside of the shower and she uses the soap dish as a grab bar. She has a standard toilet without grab bars. She states she usually stands to shower. She reports she was independent with all ADL's, meal prep, laundry, home management and yard work. She had a four wheeled walker and lift chair. The patient had been sleeping in a new lift chair/recliner and not her bed. The patient stated that she has difficulty with sit to and from stand transfer from lower surfaces including her toilet at times.) Social History: Detail (Supportive son and daughter live close by.) Precautions: [place], Fall Subjective Information - Subjective Information Per Patient (The patient no longer had complaints of LE pain.) Objective Data - Mental Status Patient Orientation: Oriented x3 - Visual Perception Appears within normal limits for therapeutic activities - ROM Within normal limits - Bed Mobility Independent (The patient was indepenent with supine to and from sit transfer and scooting up in bed.) - Transfers Independent (The patient is independent with sit to and from stand transfer and toilet transfer.) - Balance Balance Sitting: Good Balance Standing: Good (The patient is a medium risk for fall category using the Kendrick Balance Scale 34/46.) - Gait Detail (The patient ambulated a maximal distance of 300 feet with 4 wheeled walker independently. The patient required frequent verbal cues for proper use of 4 wheeled walker. Use of 2 wheeled walker , which patient has at home was recommended. Patient understood and agreed that a 2 wheeled walker was preferable. The patient ambulated on 3 stairs with supervision for safety only with use of one railing and folded walker.) Therapy Assessment - Therapy Assessment Detail (The patient was independent with all mobility and ambulation and improved LE strength. The patient refused home PT which was recommended and was uncertain of attending . The patient understood recommended use of 2 wheeled walker and not 4 wheeled walker and was had information for an equipment loan closet for equipment needs including no wheels for her 2 wheeled walker.) Patient Education - Patient Education Teaching Topic: Exercise/Activity (LE exercises: ankle pumps, gluteal sets, LAQ , hamstring curls and hip abduction with red theraband . The patient was indepenedent with HEP.) Response: Return Demonstration Teaching Method: Discussion, Handout Teaching Recipient: Patient Barriers To Learning: Age Related Problem List - Problem List Physical Therapy Problem List: Detail (1) Decreased LE strength 2) Decreased ability to complete sustained physical activity 3) Decreased balance in standing ) Occupational Therapy Problem List: Detail (1. Decreased endurance and UE functional endurance needed for safe and Ind ADLs/IADLs. 2. Decreased Ind with total body dressing. 3. Decreased Ind with transfers/mobility needed for Ind ADLs.) Goals - Goals Physical Therapy Goals: GOALS MET: 1) Increase LE strength 1/3 muscle grade to improve stability of gait. 2) Formally assess patient's balance using objective balance test. 3) The patient will ambulate on 3 steps with supervison. 4) The patient will be independent with all transfers. 5) The patient will ambulate with appropriate assistive device a distance of 150 feet plus independently. Occupational Therapy Goals: Goals Met: 1. Pt will demonstrate improved UE function and overall endurance needed for safe and Ind ADLs/IADLs. 2. Pt will be Ind with total body dressing. 3. Pt will be safe and Ind with transfers and all functional mobility needed for ADLs/IADLs. Plan - Plan Physical Therapy Plan: The patient was discharged for [facility] to home. The patient is to continue with HEP. Ongoing PT was recommended, however patient has refused home health services. Occupational Therapy Plan: Pt is discharging home today, she is not interested in continuing therapy at home.
== END 2017-08-25 19:20 | disposition home or self-care (01) | DRG 690 ==
LOC: MEDSURG 08-15 16:20
PROVIDERS: ADMIT Emergency Medicine; ATTEND Emergency Medicine
DX: N39.0 Urinary tract infection, site not specified (principal); R53.1 Weakness; I25.10 Atherosclerotic heart disease of native coronary artery without angina pectoris; M54.9 Dorsalgia, unspecified; M25.551 Pain in right hip; Z86.711 Personal history of pulmonary embolism; I10 Essential (primary) hypertension; I25.2 Old myocardial infarction; Z85.841 Personal history of malignant neoplasm of brain; E11.9 Type 2 diabetes mellitus without complications; Z79.4 Long term (current) use of insulin; Z85.3 Personal history of malignant neoplasm of breast
CPT/HCPCS: 36416; 82948; 97110; 97116; 97530; 97535; 99306; 99310; 99316; J1650; J3490; J7512